=== PATIENT | female | born 1965 | race Caucasian/White ===

== ENCOUNTER 2017-10-23 07:00 | Outpatient (CLI) | payer OTHER ==
--- NOTE | 2017-10-23 12:11 | XRAY Report ---
THREE VIEW RIGHT KNEE: 10/23/2017 CLINICAL INDICATION: Pain. FINDINGS: AP, lateral, bilateral oblique views of the right knee demonstrate moderate osteoarthritis. There is no evidence of acute fracture. No effusion is seen. IMPRESSION: MODERATE RIGHT KNEE OSTEOARTHRITIS. TD: 10/23/2017 12:11
== END 2017-10-23 07:01 | disposition home or self-care (01) ==
LOC: DI 07:00
PROVIDERS: ATTEND Registered Nurse
DX: M17.11 Unilateral primary osteoarthritis, right knee (principal)

== ENCOUNTER 2017-11-16 07:56 | Outpatient (CLI) | payer OTHER ==
--- NOTE | 2017-11-16 11:13 | MRI Report ---
EXAM: RIGHT KNEE MRI WITHOUT CONTRAST. EXAM DATE: 11/16/2017 08:47 AM. CLINICAL HISTORY: On and off flares of pain, feeling of popping. COMPARISON: Radiographs 10/23/2017. TECHNIQUE: Multiplanar, multisequence T1-weighted and fluid-sensitive sequences of the knee without c ontrast. Other: None. FINDINGS: Cruciate ligaments: The anterior and posterior cruciate ligaments appear intact. Medial meniscus: Intact. No tear is identified. Lateral meniscus: Ill-defined horizontal tear and degeneration of the body. Small horizontal tear of the posterior horn extending mainly to the tibial articular surface. Deficiency, abnormal signal and morphology involving the anterior horn consistent with complex tear and degeneration. Collateral ligaments: The medial and fibular collateral ligaments appear intact. Bones and articular surfaces: Severe cartilage loss in the weight-bearing lateral compartment with pa tchy subchondral edema. Moderate cartilage thinning, fissuring and irregularity in the patellofemoral compartment. Mild cartilage thinning and superficial fissuring in the medial compartment. Small join t effusion. Extensor mechanism: The patellar tendon and quadriceps insertion appear intact. IMPRESSION: 1. Complex tears and degeneration of the lateral meniscus. 2. Tricompartmental osteoarthritis most pronounced in the lateral compartment. [facility] Referring Provider Line: [phone] SITE ID: [id number]
== END 2017-11-16 07:57 | disposition home or self-care (01) ==
LOC: DI 07:56
PROVIDERS: ATTEND Registered Nurse
DX: S83.271A Complex tear of lateral meniscus, current injury, right knee, initial encounter (principal); M17.11 Unilateral primary osteoarthritis, right knee

== ENCOUNTER 2017-11-18 22:35 | Emergency (ER) | payer OTHER ==
[2017-11-18 23:20] LABS: BASOPHILS % (AUTO) 0.6 %; EOSINOPHILS # (AUTO) 0.1 10^3/uL (0.0-0.7); EOSINOPHILS % (AUTO) 2.4 %; HGB - HEMOGLOBIN 13.2 g/dL (12.0-16.0); LYMPHOCYTES # (AUTO) 1.9 10^3/uL (1.5-3.5); LYMPHOCYTES % (AUTO) 39.1 %; MEAN CORPUSCULAR HEMOGLOBIN 31.2 pg (27.0-31.0); MEAN CORPUSCULAR HGB CONC 33.7 g/dL (32.0-36.0); MEAN CORPUSCULAR VOLUME 92.6 fL (81.0-99.0); MEAN PLATELET VOLUME 8.2 fL (7.9-10.8); MONOCYTES # (AUTO) 0.3 10^3/uL (0.0-1.0); MONOCYTES % (AUTO) 6.8 %; NEUTROPHILS # (AUTO) 2.5 10^3/uL (1.5-6.6); NEUTROPHILS % (AUTO) 51.1 %; PLT - PLATELET COUNT 156 10^3/uL (130-450); RED BLOOD COUNT 4.25 10^6/uL (4.20-5.40); WHITE BLOOD COUNT 4.9 x10^3/uL (4.8-10.8)
[2017-11-18 23:32] LABS: ALBUMIN 4.2 g/dL (3.2-5.5); ALBUMIN/GLOBULIN RATIO 1.5 (1.0-2.2); BILIRUBIN,TOTAL 0.7 mg/dL (0.2-1.0); CALCIUM 9.4 mg/dL (8.5-10.3)
[2017-11-19] MEDS ORDERED: ALBUTEROL NEB 2.5 MG/3 ML INH STA (00:38)
--- NOTE | 2017-11-19 00:39 | XRAY Preliminary Report ---
Exam: XR CHEST 2 VIEW X-RAY IMPRESSION: Normal 2-view chest radiography. [facility] SITE ID: [id number]
--- NOTE | 2017-11-19 00:39 | XRAY Report ---
EXAM: CHEST RADIOGRAPHY EXAM DATE: 11/19/2017 12:05 AM. CLINICAL HISTORY: Short of breath. COMPARISON: None. TECHNIQUE: 2 views. FINDINGS: Lungs/Pleura: No focal opacities evident. No pleural effusion. No pneumothorax. Normal volumes. Mediastinum: Heart and mediastinal contours are unremarkable. Other: None. IMPRESSION: Normal 2-view chest radiography. [facility] Referring Provider Line: [phone] SITE ID: [id number]
[2017-11-19] MEDS ORDERED: methylPREDNISolone SUCCINATE 125 MG/2 ML VIAL IVP STA (01:17)
--- NOTE | 2017-11-19 01:18 | ED Physician Documentation ---
PD HPI DYSPNEA - Stated complaint Stated Complaint: SOA - Chief complaint Chief Complaint: General - History obtained from History obtained from: Patient - History of Present Illness Timing - onset: How many days ago (2) Timing - onset during: Light activity, Other (talking) Timing - details: Intermittant Inciting event(s): No: URI Improved by: O2 Associated symptoms: No: Fever, Cough, Wheezing, Chest pain / discomfort, Palpitations, Diaphoresis Similar symptoms before: No diagnosis Recently seen: Not recently seen - Additional information Additional information: Patient is a 52 year old obese female who is presenting to the emergency department for shortness of breath. Patient states that it gets worse when she walks and when she talks. patient states that she has one episode of asthma/ reactive airway to smoke exposure in the past that made her go to the hospital. patient states that her weight has always fluctuated but that she has gained likely 30 plus pounds over the last 6 months. 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 - Present Medications Home Medications: Ambulatory Orders Medication Instructions Recorded Confirmed Acyclovir 400 mg PO DAILY 06/28/16 06/28/16 HYDROcod/ACETAM 5/325 [[place] 5/325] 1 tab PO DAILY PRN 06/28/16 06/28/16 Levothyroxine [Synthroid] 112 mcg PO QDAC 06/28/16 06/28/16 Meloxicam 15 mg PO DAILY 06/28/16 06/28/16 Ondansetron Odt [Zofran] 4 mg TL Q6H PRN #14 tablet 06/28/16 Promethazine [Phenergan] 25 - 50 mg PO Q6H PRN #14 tab 06/28/16 raNITIdine [Zantac] 150 mg PO DAILY 06/28/16 06/28/16 Hydrocodone/Acetaminophen 1 - 2 each PO Q6HR PRN #14 tablet 05/07/17 [Hydrocodon-Acetaminophen 5-325] Ondansetron Odt [Zofran] 4 mg TL Q6H PRN #10 tablet 05/07/17 Albuterol Sulfate [Proventil Hfa 1 - 2 puffs INH Q4H PRN #1 inhaler 11/19/17 Inhaler] predniSONE [Prednisone] 40 mg PO DAILY 5 Days tablet 11/19/17 - Allergies Allergies/Adverse Reactions: Allergies Allergy/AdvReac Type Severity Reaction Status Date / Time Penicillins Allergy Hives Verified 06/28/16 00:54 codeine AdvReac Emesis Verified 06/28/16 00:54 doxycycline AdvReac Emesis Verified 06/28/16 00:54 trazodone AdvReac Emesis Verified 06/28/16 00:54 - Social History Does the pt smoke?: No Smoking Status: Never smoker Does the pt drink ETOH?: Yes Does the pt have substance abuse?: No - Immunizations Immunizations are current?: Yes - POLST Patient has POLST: No PD ED PE NORMAL - Vitals Vital signs reviewed: Yes - General General: Alert and oriented X 3, No acute distress, Other - HEENT HEENT: Atraumatic - Neck Neck: No JVD - Cardiac Cardiac: RRR, No murmur - Respiratory Respiratory: No respiratory distress, Clear bilaterally - Derm Derm: Normal color, No rash - Extremities Extremities: No deformity - Neuro Neuro: Alert and oriented X 3 Eye Opening: To Voice Verbal: Oriented Results - Vitals Vitals: Vital Signs - 24 hr 11/18/17 11/18/17 11/19/17 22:40 23:47 00:55 Temperature 36.1 C L Heart Rate 96 84 86 Respiratory 17 17 8 L Rate Blood Pressure 153/105 H 145/83 H O2 Saturation 100 99 11/19/17 11/19/17 00:56 01:29 Temperature Heart Rate 86 95 Respiratory 17 19 Rate Blood Pressure 138/79 H 123/67 O2 Saturation 100 95 Oxygen O2 Source Room air - EKG (time done) 2251 Rate: Rate (enter#) (90) Rhythm: NSR [place]: LAD QRS: LVH Ischemia: Normal ST segments Compare to prior EKG: Old EKG unavailable - Labs Labs: Laboratory Tests 11/18/17 11/18/17 11/18/17 23:10 23:10 23:10 WBC 4.9 RBC 4.25 Hgb 13.2 Hct 39.3 MCV 92.6 MCH 31.2 H MCHC 33.7 RDW 13.0 Plt Count 156 MPV 8.2 Neut # 2.5 Lymph # 1.9 [place] # 0.3 Eos # 0.1 Baso # 0.0 Absolute Nucleated RBC 0.00 Nucleated RBC % 0.0 D-Dimer 205.1 Sodium 136 Potassium 3.7 Chloride 102 Carbon Dioxide 25 Anion Gap 9.0 BUN 23 H Creatinine 1.0 Estimated GFR (MDRD) 58 L Glucose 93 Calcium 9.4 Total Bilirubin 0.7 AST 24 ALT 31 Alkaline Phosphatase 59 Troponin I B-Natriuretic Peptide Total Protein 7.0 Albumin 4.2 Globulin 2.8 Albumin/Globulin Ratio 1.5 Lipase 21 L 11/18/17 11/18/17 23:10 23:10 WBC RBC Hgb Hct MCV MCH MCHC RDW Plt Count MPV Neut # Lymph # [place] # Eos # Baso # Absolute Nucleated RBC Nucleated RBC % D-Dimer Sodium Potassium Chloride Carbon Dioxide Anion Gap BUN Creatinine Estimated GFR (MDRD) Glucose Calcium Total Bilirubin AST ALT Alkaline Phosphatase Troponin I < 0.04 B-Natriuretic Peptide 17 Total Protein Albumin Globulin Albumin/Globulin Ratio Lipase - Rads (name of study) chest x-ray Radiology: Final report received (normal) PD MEDICAL DECISION MAKING - ED course Complexity details: reviewed old records, reviewed results, re-evaluated patient , considered differential, d/w patient ED course: Patient was seen and examined at bedside. ekg was performed and showed normal sinus. labs were drawn, including d-dimer and they were negative. chest -xray was ordered as well as albuterol. patient's chest x-ray showed no abnormalities and the breathing treatment improved the patient. Patient was started on a short course of steroids and prescription for inhaler was written. patient required no further work up and was stable for discharge with outpatient follow up. Departure - Departure Disposition: 01 Home, Self Care Clinical Impression: Reactive airway disease with acute exacerbation Condition: Good Instructions: ED Reactive Airway Disease Follow-Up: Bre [facility] OFFICE COPY SELECTOR [Primary Care Provider] - Tomorrow Prescriptions: Albuterol Sulfate [Proventil Hfa Inhaler] 1 - 2 puffs INH Q4H PRN #1 inhaler PRN Reason: Shortness Of Air/Wheezing predniSONE [Prednisone] 40 mg PO DAILY 5 Days tablet Comments: Your diagnostics today were within normal limits. there were no acute findings on your x-ray or blood work. You symptoms are likely multifactorial. You will be started on a short course of steroids and well as an inhaler. If your symptoms don't improve you should follow up with your doctor this week. You may return to the emergency department at any time for new, worsening or uncontrollable symptoms. Discharge Date/Time: 11/19/17 01:31
[2017-11-19 01:30] VITALS: BP 123/67
== END 2017-11-19 01:31 | disposition home or self-care (01) ==
LOC: ED 22:35
DX: J45.901 Unspecified asthma with (acute) exacerbation (principal); E03.9 Hypothyroidism, unspecified
CPT/HCPCS: 36415; 71046; 80053; 83690; 83880; 84484; 85025; 85379; 93005; 94640; 96374; 99284

== ENCOUNTER 2017-11-28 09:56 | Outpatient (CLI) | payer OTHER | END 2017-11-28 09:57 | disposition short-term general hospital (02) | LOC: EMS 09:56 | PROVIDERS: ATTEND Surgery | DX: R07.89 Other chest pain (principal); R00.2 Palpitations; R06.02 Shortness of breath; R11.0 Nausea | CPT/HCPCS: A0170; A0425; A0427 ==

== ENCOUNTER 2017-12-05 11:20 | Outpatient (CLI) | payer OTHER | END 2017-12-05 11:21 | disposition home or self-care (01) | LOC: DI 11:20 | PROVIDERS: ATTEND Registered Nurse | DX: I48.91 Unspecified atrial fibrillation (principal); I51.7 Cardiomegaly | CPT/HCPCS: 93306 ==

== ENCOUNTER 2018-01-19 11:15 | Outpatient (CLI) | payer OTHER | END 2018-01-19 11:16 | disposition home or self-care (01) | LOC: SC 11:15 | PROVIDERS: ATTEND Internal Medicine Pulmonary Disease | DX: G47.10 Hypersomnia, unspecified (principal); R51 Headache; R06.83 Snoring; G47.8 Other sleep disorders; E66.01 Morbid (severe) obesity due to excess calories; Z68.42 Body mass index [BMI] 45.0-49.9, adult | CPT/HCPCS: 99203; 99212 ==

== ENCOUNTER 2018-03-08 20:18 | Outpatient (CLI) | payer OTHER | END 2018-03-08 20:19 | disposition home or self-care (01) | LOC: SC 20:18 | PROVIDERS: ATTEND Internal Medicine Pulmonary Disease | DX: G47.33 Obstructive sleep apnea (adult) (pediatric) (principal); G47.61 Periodic limb movement disorder | CPT/HCPCS: 95810 ==

== ENCOUNTER 2018-04-06 09:15 | Outpatient (CLI) | payer OTHER | END 2018-04-06 09:16 | disposition home or self-care (01) | LOC: SC 09:15 | PROVIDERS: ATTEND Nurse Practitioner Family | DX: G47.33 Obstructive sleep apnea (adult) (pediatric) (principal); G25.81 Restless legs syndrome | CPT/HCPCS: 99212; 99215 ==

== ENCOUNTER 2018-04-23 08:22 | Outpatient (CLI) | payer OTHER ==
[2018-04-23 08:47] LABS: EOSINOPHILS # (AUTO) 0.2 10^3/uL (0.0-0.7); EOSINOPHILS % (AUTO) 4.3 %; HGB - HEMOGLOBIN 13.6 g/dL (12.0-16.0); LYMPHOCYTES # (AUTO) 1.4 10^3/uL (1.5-3.5); LYMPHOCYTES % (AUTO) 29.2 %; MEAN CORPUSCULAR HGB CONC 35.4 g/dL (32.0-36.0); MEAN PLATELET VOLUME 8.7 fL (7.9-10.8); MONOCYTES # (AUTO) 0.3 10^3/uL (0.0-1.0); NEUTROPHILS # (AUTO) 2.8 10^3/uL (1.5-6.6); NEUTROPHILS % (AUTO) 58.5 %; PLT - PLATELET COUNT 177 10^3/uL (130-450); RED BLOOD COUNT 4.13 10^6/uL (4.20-5.40); RED CELL DISTRIBUTION WIDTH 13.4 % (12.0-15.0); WHITE BLOOD COUNT 4.8 x10^3/uL (4.8-10.8)
[2018-04-23 09:15] LABS: % IRON SATURATION 18 % (20-50); ALBUMIN 4.2 g/dL (3.2-5.5); ALBUMIN/GLOBULIN RATIO 1.4 (1.0-2.2); ALKALINE PHOSPHATASE 85 IU/L (42-121); ALT ALANINE AMINOTRANSFERASE 30 IU/L (10-60); AST ASPARTATE AMINOTRANSFERASE 25 IU/L (10-42); BILIRUBIN,TOTAL 0.8 mg/dL (0.2-1.0); BUN - BLOOD UREA NITROGEN 23 mg/dL (6-20); CALCIUM 9.3 mg/dL (8.5-10.3); CARBON DIOXIDE - CO2 24 mmol/L (21-32); CHLORIDE 103 mmol/L (101-111); CREATININE 0.9 mg/dL (0.4-1.0); GFR - MDRD 65 (>89); GLUCOSE 112 mg/dL (70-100); IRON 62 ug/dL (28-170); MAGNESIUM 2.2 mg/dL (1.7-2.8); SODIUM 136 mmol/L (135-145); TOTAL IRON BINDING CAPACITY 342 ug/dL (250-450); TOTAL PROTEIN 7.1 g/dL (6.7-8.2); TRANSFERRIN 244 mg/dL (192-382)
[2018-04-23 09:17] LABS: CRP - C-REACTIVE PROTEIN < 1.0 mg/dL (0-1.0)
[2018-04-23 09:34] LABS: HEMOGLOBIN A1C 0.5 g/dL; HEMOGLOBIN A1C % 5.4 % (4.6-6.2)
[2018-04-23 09:45] LABS: T4 (THYROXINE) 9.22 ug/dL (6.09-12.23)
[2018-04-23 09:48] LABS: THYROID STIMULATING HORMONE 0.54 uIU/mL (0.34-5.60)
[2018-04-23 09:54] LABS: FERRITIN 27.6 ng/mL (11.0-306.8)
== END 2018-04-23 08:23 | disposition home or self-care (01) ==
LOC: LAB 08:22
PROVIDERS: ATTEND Registered Nurse
DX: N92.4 Excessive bleeding in the premenopausal period (principal); E03.9 Hypothyroidism, unspecified; G25.81 Restless legs syndrome
CPT/HCPCS: 36415; 80053; 82728; 83036; 83540; 83735; 84436; 84443; 84466; 85025; 85651; 86140

== ENCOUNTER 2018-04-23 08:36 | Outpatient (CLI) | payer OTHER ==
--- NOTE | 2018-05-10 10:36 | Mammography Report ---
Reason: SCREENING MAMMO Procedure Date: 04/23/2018 Accession Number: [id number] / [id number] Procedure: ROBERTO - Screening Mammo w/Richard CPT Code: FULL RESULT: EXAM: Screening Mammo w/Richard DATE: 04/23/2018 9:23 AM CLINICAL HISTORY: Routine screening. No reported personal or family history of breast cancer. TECHNIQUE: Bilateral CC and MLO views were obtained. COMPARISON: 07/19/2008 through 05/15/2003 FINDINGS: The breasts demonstrate diffuse fatty replacement bilaterally. There are no suspicious masses, calcifications or areas of distortion bilaterally. IMPRESSION: Negative examination RECOMMENDATION: Routine annual screening unless otherwise clinically indicated. BI-RADS CATEGORY 1: Negative STANDARD QUALIFYING STATEMENTS: 1. This examination was not reviewed with the aid of Computer-Aided Detection (CAD). 2. A negative or benign imaging report should not preclude biopsy if clinically suspicious findings are present. 3. Dense breasts may obscure an underlying neoplasm. 4. This examination was reviewed with the aid of 3D breast imaging (tomosynthesis).
== END 2018-04-23 08:37 | disposition home or self-care (01) ==
LOC: DI 08:36
PROVIDERS: ATTEND Nurse Practitioner Family
DX: Z12.31 Encounter for screening mammogram for malignant neoplasm of breast (principal)
CPT/HCPCS: 36415; 77063; 77067; 80053; 82728; 83036; 83540; 83735; 84436; 84443; 84466; 85025; 85651; 86140

== ENCOUNTER 2018-05-31 08:16 | Outpatient (CLI) | payer OTHER | END 2018-05-31 08:17 | disposition home or self-care (01) | LOC: SC 08:16 | PROVIDERS: ATTEND Nurse Practitioner Family | DX: G47.33 Obstructive sleep apnea (adult) (pediatric) (principal) | CPT/HCPCS: 99212; 99214 ==

== ENCOUNTER 2018-07-22 10:37 | Outpatient (CLI) | payer BC, OTHER | END 2018-07-22 10:38 | disposition home or self-care (01) | LOC: SC 10:37 | PROVIDERS: ATTEND Nurse Practitioner Family | DX: G47.33 Obstructive sleep apnea (adult) (pediatric) (principal); G47.26 Circadian rhythm sleep disorder, shift work type; G25.81 Restless legs syndrome | CPT/HCPCS: 99212; 99214 ==

== ENCOUNTER 2018-09-17 10:29 | Outpatient (CLI) | payer BC | END 2018-09-17 10:30 | disposition EMS.NT | LOC: EMS 10:29 | PROVIDERS: ATTEND Surgery | DX: R07.9 Chest pain, unspecified (principal); R61 Generalized hyperhidrosis; Z53.29 Procedure and treatment not carried out because of patient's decision for other reasons ==

== ENCOUNTER 2018-09-18 17:07 | Outpatient (CLI) | payer BC | END 2018-09-18 17:08 | disposition critical access hospital (66) | LOC: EMS 17:07 | PROVIDERS: ATTEND Surgery | DX: R00.0 Tachycardia, unspecified (principal); R42 Dizziness and giddiness | CPT/HCPCS: A0425; A0427 ==

== ENCOUNTER 2018-09-18 17:35 | Emergency (ER) | payer BC ==
[2018-09-18] MEDS ORDERED: diltiaZEM INJ 5 MG/ML VIAL IVP STA ×2 (17:49→18:29)
[2018-09-18] MEDS ORDERED: PROCAINAMIDE 1,000 MG in SODIUM CHLORIDE 0.9% 240 ML IV STA (17:49)
--- NOTE | 2018-09-18 17:51 | ED Physician Documentation ---
PD HPI CHEST PAIN - Stated complaint Stated Complaint: RAPID AFIB - Chief complaint Chief Complaint: Cardiac - History obtained from History obtained from: Patient - History of Present Illness Timing - onset: Today (53-year-old woman with history of paroxysmal atrial fibrillation on as needed Cardizem. She had a short episode yesterday of about 30 minutes and converted after oral Cardizem at home. Today it started again at 4:00 with uncomfortable palpitations and lightheadedness. 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 - Present Medications Home Medications: Ambulatory Orders Medication Instructions Recorded Confirmed Acyclovir 400 mg PO DAILY 06/28/16 06/28/16 HYDROcod/ACETAM 5/325 [[place] 5/325] 1 tab PO DAILY PRN 06/28/16 06/28/16 Levothyroxine [Synthroid] 112 mcg PO QDAC 06/28/16 06/28/16 Meloxicam 15 mg PO DAILY 06/28/16 06/28/16 Ondansetron Odt [Zofran] 4 mg TL Q6H PRN #14 tablet 06/28/16 Promethazine [Phenergan] 25 - 50 mg PO Q6H PRN #14 tab 06/28/16 raNITIdine [Zantac] 150 mg PO DAILY 06/28/16 06/28/16 Hydrocodone/Acetaminophen 1 - 2 each PO Q6HR PRN #14 tablet 05/07/17 [Hydrocodon-Acetaminophen 5-325] Ondansetron Odt [Zofran] 4 mg TL Q6H PRN #10 tablet 05/07/17 Albuterol Sulfate [Proventil Hfa 1 - 2 puffs INH Q4H PRN #1 inhaler 11/19/17 Inhaler] predniSONE [Prednisone] 40 mg PO DAILY 5 Days tablet 11/19/17 - Allergies Allergies/Adverse Reactions: Allergies Allergy/AdvReac Type Severity Reaction Status Date / Time Penicillins Allergy Hives Verified 03/23/19 17:48 codeine AdvReac Emesis Verified 09/18/18 17:48 doxycycline AdvReac Emesis Verified 09/18/18 17:48 trazodone AdvReac Emesis Verified 09/18/18 17:48 - Social History Does the pt smoke?: No Smoking Status: Never smoker Does the pt drink ETOH?: Yes Does the pt have substance abuse?: No - Family History Family history: reports: Non contributory - Immunizations Immunizations are current?: Yes - POLST Patient has POLST: No PD ED PE NORMAL - Vitals Vital signs reviewed: Yes - General General: Alert and oriented X 3, No acute distress - HEENT HEENT: PERRL, EOMI - Neck Neck: Supple, no meningeal sign, No bony TTP - Cardiac Cardiac: Other (Rapid and irregular) - Respiratory Respiratory: No respiratory distress, Clear bilaterally - Abdomen Abdomen: Normal bowel sounds, Soft, Non tender - Back Back: No CVA TTP, No spinal TTP - Derm Derm: Normal color, Warm and dry - Extremities Extremities: No edema, No calf tenderness / cord - Neuro Neuro: Alert and oriented X 3, Normal speech Results - Vitals Vitals: Vital Signs - 24 hr 09/18/18 09/18/18 09/18/18 17:43 18:00 18:10 Temperature 36.7 C Heart Rate 150 H 162 H 163 H Respiratory 20 18 18 Rate Blood Pressure 141/82 H 124/84 H 113/66 O2 Saturation 96 99 98 09/18/18 09/18/18 09/18/18 18:15 18:25 18:30 Temperature Heart Rate 158 H 149 H 153 H Respiratory 18 18 18 Rate Blood Pressure 121/86 H 116/90 H 125/86 H O2 Saturation 98 97 95 09/18/18 09/18/18 09/18/18 18:42 18:48 18:58 Temperature Heart Rate 148 H 147 H 118 H Respiratory 18 18 18 Rate Blood Pressure 102/68 105/74 117/105 H O2 Saturation 99 95 95 09/18/18 09/18/18 19:10 19:14 Temperature Heart Rate 77 76 Respiratory 20 18 Rate Blood Pressure 103/66 97/66 O2 Saturation 95 97 Oxygen O2 Source Room air - EKG (time done) 1749 Rate: Rate (enter#) (161) Rhythm: Atrial fibrillation QRS: LVH Ischemia: Non specific changes Computer interpretation: Agree with computer - Labs Labs: Laboratory Tests 09/18/18 09/18/18 09/18/18 18:05 18:05 18:05 WBC 4.3 L RBC 4.43 Hgb 14.0 Hct 41.6 MCV 93.9 MCH 31.7 H MCHC 33.7 RDW 13.7 Plt Count 173 MPV 8.8 Neut # (Auto) 2.5 Lymph # (Auto) 1.2 L [place] # (Auto) 0.4 Eos # (Auto) 0.2 Baso # (Auto) 0.0 Absolute Nucleated RBC 0.01 Nucleated RBC % 0.1 Sodium 141 Potassium 3.8 Chloride 107 Carbon Dioxide 25 Anion Gap 9.0 BUN 19 Creatinine 0.9 Estimated GFR (MDRD) 65 L Glucose 148 H Calcium 9.5 Total Bilirubin 0.6 AST 24 ALT 35 Alkaline Phosphatase 66 Troponin I < 0.04 Total Protein 7.1 Albumin 4.1 Globulin 3.0 Albumin/Globulin Ratio 1.4 Lipase 32 TSH 09/18/18 18:05 WBC RBC Hgb Hct MCV MCH MCHC RDW Plt Count MPV Neut # (Auto) Lymph # (Auto) [place] # (Auto) Eos # (Auto) Baso # (Auto) Absolute Nucleated RBC Nucleated RBC % Sodium Potassium Chloride Carbon Dioxide Anion Gap BUN Creatinine Estimated GFR (MDRD) Glucose Calcium Total Bilirubin AST ALT Alkaline Phosphatase Troponin I Total Protein Albumin Globulin Albumin/Globulin Ratio Lipase TSH 0.11 L PD MEDICAL DECISION MAKING - ED course ED course: 53-year-old woman with recurrent paroxysmal atrial fibrillation, she is rapid on arrival. 2 doses of diltiazem did not do much, this was followed with metoprolol and procainamide drip and she converted. Departure - Departure Disposition: 01 Home, Self Care Clinical Impression: Atrial fibrillation Qualifiers: Atrial fibrillation type: paroxysmal Qualified Code(s): I48.0 - Paroxysmal atrial fibrillation Condition: Good Instructions: Atrial Fibrillation Dc Comments: Continue your current meds But stop thyroid meds as your TSH was low, at 0.11 until you see your physician Return for recurrence Forms: Activity restrictions
[2018-09-18 18:17] LABS: BASOPHILS % (AUTO) 0.5 %; EOSINOPHILS # (AUTO) 0.2 10^3/uL (0.0-0.7); EOSINOPHILS % (AUTO) 5.2 %; LYMPHOCYTES # (AUTO) 1.2 10^3/uL (1.5-3.5); LYMPHOCYTES % (AUTO) 27.7 %; MEAN CORPUSCULAR HEMOGLOBIN 31.7 pg (27.0-31.0); MEAN CORPUSCULAR HGB CONC 33.7 g/dL (32.0-36.0); MEAN CORPUSCULAR VOLUME 93.9 fL (81.0-99.0); MEAN PLATELET VOLUME 8.8 fL (7.9-10.8); MONOCYTES # (AUTO) 0.4 10^3/uL (0.0-1.0); MONOCYTES % (AUTO) 8.2 %; NEUTROPHILS # (AUTO) 2.5 10^3/uL (1.5-6.6); NEUTROPHILS % (AUTO) 58.4 %; PLT - PLATELET COUNT 173 10^3/uL (130-450); RED BLOOD COUNT 4.43 10^6/uL (4.20-5.40); RED CELL DISTRIBUTION WIDTH 13.7 % (12.0-15.0); WHITE BLOOD COUNT 4.3 x10^3/uL (4.8-10.8)
[2018-09-18] MEDS ORDERED: METOCLOPRAMIDE 10 MG/2 ML VIAL IVP STA (18:29)
[2018-09-18 18:33] LABS: ALBUMIN 4.1 g/dL (3.2-5.5); ALBUMIN/GLOBULIN RATIO 1.4 (1.0-2.2); BILIRUBIN,TOTAL 0.6 mg/dL (0.2-1.0); CALCIUM 9.5 mg/dL (8.5-10.3); CREATININE 0.9 mg/dL (0.4-1.0); TOTAL PROTEIN 7.1 g/dL (6.7-8.2)
[2018-09-18] MEDS ORDERED: METOPROLOL 5 MG/5 ML VIAL IVP STA (18:47)
[2018-09-18 19:38] VITALS: BP 109/75
== END 2018-09-18 19:45 | disposition home or self-care (01) ==
LOC: ED 17:35
DX: I48.0 Paroxysmal atrial fibrillation (principal); E03.9 Hypothyroidism, unspecified
CPT/HCPCS: 36415; 80053; 83690; 84443; 84484; 85025; 93005; 96365; 96375; 99284; J2690; J2765

== ENCOUNTER 2018-09-27 18:34 | Outpatient (CLI) | payer BC | END 2018-09-27 18:35 | disposition critical access hospital (66) | LOC: EMS 18:34 | PROVIDERS: ATTEND Surgery | DX: R00.0 Tachycardia, unspecified (principal); R07.89 Other chest pain | CPT/HCPCS: A0425; A0427 ==

== ENCOUNTER 2018-09-27 19:00 | Inpatient (IN) | payer BC ==
--- NOTE | 2018-09-27 19:17 | ED Physician Documentation ---
History of Present Illness - Stated complaint Stated Complaint: AFIB/PALPITAIONS - History obtained from History obtained from: Patient - History of Present Illness Timing: Prior to arrival - Additonal information Additional information: Patient Is a 53-year-old female with history of hypothyroidism and paroxysmal atrial fibrillation presenting with a new onset episode of atrial fibrillation. Virtually, patient has had multiple episodes over the past 7-10 days. Prior to this past week or so, patient has not had any issues for over one year. Patient does not take preventative medications at home, but does have Cardizem 30 mg p.o. as needed. Patient describes multiple episodes over the past week or so where she has taken her home medications and converted, as well as other times where she has had to come to the hospital and receive additional medications including metoprolol and procainamide to help her convert. Patient's associated symptoms include palpitations, chest discomfort, shortness of breath particularly with exertion, as well as lightheadedness without syncope. When not experiencing an episode, patient has no complaints and is otherwise in her normal state of health. Patient does believe that her thyroid medication and possibly her antidepressant medication could be contributing, although she has been off these medications for the past several days.No particular worsening or improving factors noted except for exertion. 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 - Present Medications Home Medications: Ambulatory Orders Medication Instructions Recorded Confirmed Acyclovir 400 mg PO DAILY 06/28/16 06/28/16 HYDROcod/ACETAM 5/325 [[place] 5/325] 1 tab PO DAILY PRN 06/28/16 06/28/16 Levothyroxine [Synthroid] 112 mcg PO QDAC 06/28/16 06/28/16 Meloxicam 15 mg PO DAILY 06/28/16 06/28/16 Ondansetron Odt [Zofran] 4 mg TL Q6H PRN #14 tablet 06/28/16 Promethazine [Phenergan] 25 - 50 mg PO Q6H PRN #14 tab 06/28/16 raNITIdine [Zantac] 150 mg PO DAILY 06/28/16 06/28/16 Hydrocodone/Acetaminophen 1 - 2 each PO Q6HR PRN #14 tablet 05/07/17 [Hydrocodon-Acetaminophen 5-325] Ondansetron Odt [Zofran] 4 mg TL Q6H PRN #10 tablet 05/07/17 Albuterol Sulfate [Proventil Hfa 1 - 2 puffs INH Q4H PRN #1 inhaler 11/19/17 Inhaler] predniSONE [Prednisone] 40 mg PO DAILY 5 Days tablet 11/19/17 - Allergies Allergies/Adverse Reactions: Allergies Allergy/AdvReac Type Severity Reaction Status Date / Time Penicillins Allergy Hives Verified 09/18/18 17:48 codeine AdvReac Emesis Verified 09/18/18 17:48 doxycycline AdvReac Emesis Verified 09/18/18 17:48 trazodone AdvReac Emesis Verified 09/18/18 17:48 - Social History Does the pt smoke?: No Smoking Status: Never smoker Does the pt drink ETOH?: Yes Does the pt have substance abuse?: No - Immunizations Immunizations are current?: Yes - POLST Patient has POLST: No PD ED PE NORMAL - General General: Alert and oriented X 3, No acute distress, Well developed/nourished, Other (Comfortable in bed and speaking in full sentences) - HEENT HEENT: Atraumatic, Moist mucous membranes - Cardiac Cardiac: No murmur, Other (Irregular, tachycardic) - Respiratory Respiratory: No respiratory distress, Clear bilaterally - Abdomen Abdomen: Soft, Non tender, Non distended - Derm Derm: Normal color, Warm and dry, No rash - Extremities Extremities: No deformity, No edema - Neuro Neuro: Alert and oriented X 3, No motor deficit, No sensory deficit - Psych Psych: Normal mood, Normal affect Results - Vitals Vitals: Vital Signs - 24 hr 09/27/18 09/27/18 19:08 19:31 Temperature 36.7 C Heart Rate 121 H 107 H Respiratory 16 18 Rate Blood Pressure 150/98 H 150/98 H O2 Saturation 97 96 Oxygen O2 Source Room air - EKG (time done) 1910 Rate: Rate (enter#) (150) Rhythm: Atrial fibrillation - Labs Labs: Laboratory Tests 09/27/18 09/27/18 09/27/18 19:35 19:35 19:35 WBC 3.7 L RBC 4.25 Hgb 13.7 Hct 39.4 MCV 92.6 MCH 32.2 H MCHC 34.8 RDW 13.3 Plt Count 170 MPV 8.5 Neut # (Auto) 1.8 Lymph # (Auto) 1.4 L [place] # (Auto) 0.3 Eos # (Auto) 0.2 Baso # (Auto) 0.0 Absolute Nucleated RBC 0.00 Nucleated RBC % 0.1 Sodium 138 Potassium 3.7 Chloride 106 Carbon Dioxide 23 Anion Gap 9.0 BUN 18 Creatinine 0.8 Estimated GFR (MDRD) 75 L Glucose 127 H Calcium 9.9 Total Bilirubin 0.7 AST 24 ALT 25 Alkaline Phosphatase 65 Troponin I < 0.04 Total Protein 6.9 Albumin 3.8 Globulin 3.1 Albumin/Globulin Ratio 1.2 Lipase 32 TSH 09/27/18 19:35 WBC RBC Hgb Hct MCV MCH MCHC RDW Plt Count MPV Neut # (Auto) Lymph # (Auto) [place] # (Auto) Eos # (Auto) Baso # (Auto) Absolute Nucleated RBC Nucleated RBC % Sodium Potassium Chloride Carbon Dioxide Anion Gap BUN Creatinine Estimated GFR (MDRD) Glucose Calcium Total Bilirubin AST ALT Alkaline Phosphatase Troponin I Total Protein Albumin Globulin Albumin/Globulin Ratio Lipase TSH 1.00 PD MEDICAL DECISION MAKING - ED course Complexity details: reviewed old records, reviewed results, re-evaluated patient, considered differential, d/w patient, d/w family, d/w banking consultant ED course: Unfortunately, patient appears to be experiencing refractory atrial fibrillation with RVR despite multiple medications and has had several episodes both at home and at the hospital in the past 7-10 days. Patient received diltiazem 25 mg, as well as amiodarone 150 mg in route by EMS. Given these dosings, feel most appropriate to try Lopressor 10 mg to help control rate. Of note, patient's rate does oscillate between the high 90s and 140/150. At this time, patient is rather asymptomatic except for SOB with exertion. Remainder of physical exam is relatively unremarkable. At this time, have low suspicion for ACS, myocardial infarction, unstable angina or other acute pathology except for arrhythmia.EKG indicated atrial fibrillation with RVR. Troponin negative. Remainder screening lab work including thyroid studies, also relatively unremarkable. Do not feel patient requires urinalysis testing or imaging at this time. As patient's heart rate continued to oscillate, although lower than when she first arrived, felt appropriate to start diltiazem ip and discuss admission for further workup and treatment. As she was relatively asymptomatic and not anticoagulated with multiple episodes over the past several days, did not feel patient was appropriate for emergent electrical cardioversion and discussed this with her. Spoke with hospitalist, who agreed with admission and requested CTA chest to further evaluate for PE, which was ordered. Patient amenable to hospitalization for further treatment and workup. Departure - Departure Disposition: [facility] DC/Xfer Clinical Impression: Atrial fibrillation Qualifiers: Atrial fibrillation type: paroxysmal Qualified Code(s): I48.0 - Paroxysmal atrial fibrillation
[2018-09-27] MEDS ORDERED: SODIUM CHLORIDE 0.9% 1,000 ML IV ONE (19:27)
[2018-09-27] MEDS ORDERED: METOPROLOL 5 MG/5 ML VIAL IVP STA (19:33)
[2018-09-27 19:51] LABS: BASOPHILS % (AUTO) 1.3 %; EOSINOPHILS # (AUTO) 0.2 10^3/uL (0.0-0.7); EOSINOPHILS % (AUTO) 4.2 %; HGB - HEMOGLOBIN 13.7 g/dL (12.0-16.0); LYMPHOCYTES # (AUTO) 1.4 10^3/uL (1.5-3.5); LYMPHOCYTES % (AUTO) 37.4 %; MEAN CORPUSCULAR HEMOGLOBIN 32.2 pg (27.0-31.0); MEAN CORPUSCULAR HGB CONC 34.8 g/dL (32.0-36.0); MEAN CORPUSCULAR VOLUME 92.6 fL (81.0-99.0); MEAN PLATELET VOLUME 8.5 fL (7.9-10.8); MONOCYTES # (AUTO) 0.3 10^3/uL (0.0-1.0); MONOCYTES % (AUTO) 7.9 %; NEUTROPHILS # (AUTO) 1.8 10^3/uL (1.5-6.6); NEUTROPHILS % (AUTO) 49.2 %; PLT - PLATELET COUNT 170 10^3/uL (130-450); RED BLOOD COUNT 4.25 10^6/uL (4.20-5.40); RED CELL DISTRIBUTION WIDTH 13.3 % (12.0-15.0); WHITE BLOOD COUNT 3.7 x10^3/uL (4.8-10.8)
[2018-09-27] MEDS ORDERED: diltiaZEM INJ 125 MG in DEXTROSE 5% 100 ML IV STA (20:02)
[2018-09-27 20:03] LABS: ALBUMIN 3.8 g/dL (3.2-5.5); ALBUMIN/GLOBULIN RATIO 1.2 (1.0-2.2); BILIRUBIN,TOTAL 0.7 mg/dL (0.2-1.0); CALCIUM 9.9 mg/dL (8.5-10.3); CREATININE 0.8 mg/dL (0.4-1.0); TOTAL PROTEIN 6.9 g/dL (6.7-8.2)
[2018-09-27] MEDS ORDERED: diltiaZEM INJ 5 MG/ML VIAL ONE (20:11)
[2018-09-27] MEDS ORDERED: SODIUM CHLORIDE FLUSH 0.9% 10 ML SYRINGE IVP PRN (21:57)
[2018-09-27 22:22] LABS: MAGNESIUM 2.2 mg/dL (1.7-2.8); PHOSPHORUS 2.2 mg/dL (2.5-4.6)
[2018-09-27] MEDS ORDERED: IOPAMIDOL-300 100 ML VIAL ONE (22:58)
[2018-09-27] MEDS ORDERED: IOPAMIDOL-300 100 ML VIAL IVP ONE (23:17)
[2018-09-27] MEDS: SODIUM CHLORIDE 0.9% 1,000 ML IV SCH (23:26)
[2018-09-27] MEDS ORDERED: diltiaZEM INJ 125 MG in DEXTROSE 5% 100 ML IV SCH (23:45)
[2018-09-27] MEDS ORDERED: LORazepam 0.5 MG TABLET PO PRN (23:47)
[2018-09-28] MEDS: NEUTRA-PHOS 250 MG TABLET PO SCH ×2 (00:12→02:53)
[2018-09-28] MEDS: diltiaZEM 30 MG TABLET PO SCH ×2 (00:13→05:56)
[2018-09-28] MEDS: SODIUM CHLORIDE FLUSH 0.9% 10 ML SYRINGE IVP SCH ×3 (00:15→18:11)
--- NOTE | 2018-09-28 00:39 | CT Report ---
Reason: concern for PE Procedure Date: 09/27/2018 Accession Number: [id number] / [id number] Procedure: CT - ANGIO CHEST W/WO CPT Code: FULL RESULT: EXAM: CT ANGIOGRAM CHEST EXAM DATE: 09/27/2018 11:18 PM. CLINICAL HISTORY: Shortness of breath and palpitations. Atrial fibrillation. Concern for PE. COMPARISON: None. TECHNIQUE: Routine helical imaging was performed through the chest in the pulmonary arterial phase. IV Contrast: ISOVUE 300 80mL. Reconstructions: Coronal 3-D MIP reconstructions.Sagittal and coronal. In accordance with CT protocol optimization, one or more of the following dose reduction techniques were utilized for this exam: automated exposure control, adjustment of mA and/or KV based on patient size, or use of iterative reconstructive technique. FINDINGS: Pulmonary Arteries: Diagnostic quality: Suboptimal through the segmental arteries. Images are degraded due to body habitus. No obvious pulmonary emboli. No evidence of right heart strain. Lungs/Pleura: Bibasilar atelectasis. No alveolar consolidation or pleural effusion seen. No pneumothorax. Mediastinum: Heart size is normal to upper normal. No lymphadenopathy seen. Thoracic Aorta: Ascending aorta measures 3.8 cm. No aortic dissection. No abdominal aortic aneurysm. Upper Abdomen: Possible fatty liver. Prior cholecystectomy. Other: None. IMPRESSION: 1. Images are degraded due to body habitus. No obvious pulmonary emboli. 2. Bibasilar atelectasis. 3. Possible fatty liver. RADIA
--- NOTE | 2018-09-28 02:28 | HISTORY & PHYSICAL EXAMINATION ---
Chief Complaint - Chief Complaint Chief Complaint: palpitation History of Present Illness - Admitted From Admitted From:: [facility] ED - History Obtained From Records Reviewed: yes History obtained from: patient - History of Present Illness HPI Comment/Other: Patient is a 53 y/o female who presented to the ED via EMS with complain of palpitations. She described it as pounding in her chest which felt like a closed fist in her throat. She checked her heart rate in an jane she has and it read as high as the 200's. Subsequent check read 160's. This happened around 5pm on 09/27/18 after she had just woken up from sleep. She has had intermittent palpitations for the past 7 days which are consistent with atrial fibrillation. She has history of hypothyroidism and recently had her TSH checked. It came back at 0.15. As a result her synthroid dose is being adjusted by her PCP. She has history of paroxysmal atrial fibrillation with last occurrence being about 9 months ago. She takes cardizem intermittently and took a 30mg pill about 1:30 pm on 09/27/18 She reports feeling light-headed, dyspneic and having a chest discomfort. She denies fever or chills, abdominal pain, nausea or vomiting. She reported some leg cramps for which she took methocarbamol EMS was called by her spouse. She was given diltiazem 25mg IV X1 and amiodarone 150mg IV X1. In the ED she received lopressor 5mg IV X [address] a diltiazem drip. At the time of presentation, it was at a rate of 15mg/hr and her pulse fluctuated between 70's and 130's History - Past Medical History Cardiovascular: reports: Atrial fibrillation Respiratory: reports: Asthma Neuro: reports: None Endocrine/Autoimmune: reports: HyPOthyroidism GI: reports: GERD : reports: None Psych: reports: None, Depression Musculoskeletal: reports: None Derm: reports: None MRSA Hx?: No - Past Surgical History General: reports: Cholecystectomy /[employer]IST: reports: section - POLST Patient has POLST: No Meds/Allgy - Home Medications Home Medications: Ambulatory Orders Medication Instructions Recorded Confirmed Acyclovir 400 mg PO DAILY 06/28/16 06/28/16 HYDROcod/ACETAM 5/325 [[place] 5/325] 1 tab PO DAILY PRN 06/28/16 06/28/16 Levothyroxine [Synthroid] 112 mcg PO QDAC 06/28/16 06/28/16 Meloxicam 15 mg PO DAILY 06/28/16 06/28/16 Ondansetron Odt [Zofran] 4 mg TL Q6H PRN #14 tablet 06/28/16 Promethazine [Phenergan] 25 - 50 mg PO Q6H PRN #14 tab 06/28/16 raNITIdine [Zantac] 150 mg PO DAILY 06/28/16 06/28/16 Hydrocodone/Acetaminophen 1 - 2 each PO Q6HR PRN #14 tablet 05/07/17 [Hydrocodon-Acetaminophen 5-325] Ondansetron Odt [Zofran] 4 mg TL Q6H PRN #10 tablet 05/07/17 Albuterol Sulfate [Proventil Hfa 1 - 2 puffs INH Q4H PRN #1 inhaler 11/19/17 Inhaler] predniSONE [Prednisone] 40 mg PO DAILY 5 Days tablet 11/19/17 - Allergies Allergies/Adverse Reactions: Allergies Allergy/AdvReac Type Severity Reaction Status Date / Time Penicillins Allergy Hives Verified 09/18/18 17:48 codeine AdvReac Emesis Verified 09/18/18 17:48 doxycycline AdvReac Emesis Verified 09/18/18 17:48 trazodone AdvReac Emesis Verified 09/18/18 17:48 Review of Systems - Constitutional Constitutional: denies: Fatigue, Fever, Chills, Malaise, Weakness, Poor appetite, Diaphoresis - Eyes Eyes: denies: Blurred vision, Vision loss, Dipolpia - Ears, Nose & Throat Ears, Nose & Throat: denies: Vertigo, Sore throat, Hoarseness - Cardiovascular Cariovascular: reports: Irregular heart rate, Palpitations, Chest pain, Lightheadedness, Exertional dyspnea. denies: Edema - Respiratory Respiratory: reports: SOB at rest, SOB with exertion. denies: Cough, Sputum production, Wheezing - Gastrointestinal Gastrointestinal: reports: Reflux/heartburn. denies: Abdominal pain, Abdominal distention, Constipation, Diarrhea, Nausea, Vomiting, Coffee grounds emesis - Genitourinary Genitourinary: denies: Dysuria, Frequency, Urgency, Hematuria - Musculoskeletal Musculoskeletal: reports: Other (muscle cramp in right calf) - Integumentary Integumentary: denies: Rash, Pruritis, Lesions, Dryness - Neurological Neurological: denies: General weakness, Focal weakness, Headache, Dizziness - Psychiatric Psychiatric: reports: Depression - Endocrine Endocrine: denies: Polyuria, Polydypsia - Hematologic/Lymphatic Hematologic/Lymphatic: denies: Anemia Prior Level of Functionality: Independent of activities of daily living Lives with her spouse 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 negative: No scleral icterus ENT: positive: ENT inspection nml, No signs of dehydration Neck: positive: Nml inspection, No JVD, Trachea midline Respiratory: positive: Chest non-tender, No respiratory distress, Breath sounds nml. negative: Wheezes, Rales, Rhonchi Cardiovascular: positive: No murmur, Irregularly irregular Abdomen: positive: Non-tender, Nml bowel sounds, No distention. negative: Guarding, Rebound Back: positive: Nml inspection Skin: positive: Color nml, No rash, Warm, Dry Extremities: positive: Non-tender, Full ROM, Nml appearance, No pedal edema Neurologic/Psychiatric: positive: Oriented x3. negative: Facial droop, Slurred/abnml speech, Depressed mood/affect Conclusion/Plan - Problem List (1) Atrial fibrillation with RVR Conclusion/Plan: Etiology undetermined Endocrine: Unlikely as TSH is 1.0 Hematologic: Patient is not anemic ?Infections: While WBC is 3.7, there is no suspected site of an infection and patient is Afebrile Patient rarely drinks and there are no metabolic derangements Pulmonary: Ct Angio of thorax was negative for PE Pt uses a CPAP at home ?Cardiac: Troponin neg X 3. BNP 55. Lasecho was 12/05/2017 EF was 60-65 %. There was mild concentric LVH and mild to moderately dilated RV Will order stress test Patient converted to sinus rhythm on cardidem gtt Cardizem 30mg po q6hr ordered. Cardizem gtt weaned off Will convert to cardizem CD upon discharge Patient CHADS Score is 0. Patient takes a baby aspirin daily She has an appointment with her curer foam rubber on 10/14/18 Advised to contact curer foam [employer] office and move appointment sooner ?Ablation (2) GERD (gastroesophageal reflux disease) Conclusion/Plan: Protonix (3) Depression Conclusion/Plan: On Zoloft (4) Hypothyroidism Conclusion/Plan: On synthroid. Dose currently being adjust by PCP. TSH 1.0 (5) Asthma Conclusion/Plan: Not in exacerbation Will monitor. Will hold prednisone and albuterol for now - Lab Results Fish Bones: 09/28/18 06:03 09/28/18 06:03 Core Measures - Anticipated LOS I expect patient to be DC'd or transferred within 96 hours.: Yes - DVT/VTE - Prophylaxis VTE/DVT Device ordered at admit?: Yes
[2018-09-28] MEDS: ACETAMINOPHEN 325 MG TABLET PO PRN ×2 (05:53→15:14)
[2018-09-28 06:16] LABS: BASOPHILS # (AUTO) 0.1 10^3/uL (0.0-0.1); EOSINOPHILS # (AUTO) 0.2 10^3/uL (0.0-0.7); EOSINOPHILS % (AUTO) 3.6 %; HGB - HEMOGLOBIN 12.8 g/dL (12.0-16.0); LYMPHOCYTES # (AUTO) 1.9 10^3/uL (1.5-3.5); LYMPHOCYTES % (AUTO) 39.1 %; MEAN CORPUSCULAR HEMOGLOBIN 32.4 pg (27.0-31.0); MEAN CORPUSCULAR HGB CONC 34.9 g/dL (32.0-36.0); MEAN CORPUSCULAR VOLUME 92.9 fL (81.0-99.0); MEAN PLATELET VOLUME 8.4 fL (7.9-10.8); MONOCYTES # (AUTO) 0.4 10^3/uL (0.0-1.0); NEUTROPHILS # (AUTO) 2.4 10^3/uL (1.5-6.6); NEUTROPHILS % (AUTO) 48.3 %; PLT - PLATELET COUNT 160 10^3/uL (130-450); RED BLOOD COUNT 3.95 10^6/uL (4.20-5.40); RED CELL DISTRIBUTION WIDTH 13.6 % (12.0-15.0); WHITE BLOOD COUNT 4.9 x10^3/uL (4.8-10.8)
[2018-09-28 06:24] LABS: CALCIUM 8.8 mg/dL (8.5-10.3); CREATININE 0.7 mg/dL (0.4-1.0)
[2018-09-28 06:34] LABS: MAGNESIUM 2.2 mg/dL (1.7-2.8); PHOSPHORUS 5.2 mg/dL (2.5-4.6)
[2018-09-28] MEDS ORDERED: diltiaZEM 30 MG TABLET PO SCH ×2 (08:00→12:00)
[2018-09-28] MEDS ORDERED: LEVOTHYROXINE 112 MCG TABLET PO SCH (08:00)
[2018-09-28] MEDS: SODIUM CHLORIDE 0.9% 1,000 ML IV SCH (09:00)
[2018-09-28] MEDS: ENOXAPARIN 40 MG/0.4 ML SYRINGE SUBQ SCH (09:08)
--- NOTE | 2018-09-28 12:13 | MISCELLANEOUS PROVIDER NOTE ---
Miscellaneous Provider Note - - Note: Subjective: Patient had intermittent bouts of palpitations after eating breakfast this morning however not like presenting signs or symptoms when she presented to the EMS on this admission with a pounding in her chest which felt like a closed fist in her throat. Patient currently is normal sinus rhythm and was taken off diltiazem drip converted to an SR with a sinus rhythm confirmed at 70 bpm on EKG with minimal ST depression. Patient is off Synthroid currently. Patient currently is chest pain-free, no fevers, no coughing, no maculopapular rashes GI/ symptoms joint tenderness or reports of syncopal events. Later during the day patient was complaining of atypical chest pain that was reproducible to the left anterior chest wall alongside with nausea with no jaw claudication. Patient had been held off on her home meds of Zoloft, meloxicam, Robaxin. Patient had an EKG which was unremarkable along troponin and was given aspirin 81 mg p.o. plus NTG prn. Objective: Vital signs are hemodynamically stable. Afebrile. Heart rate 67 bpm. Blood pressure 117/73. RR 22. Non-hypoxemic. General Appearance: positive: No acute distress, Alert, Cooperative and calm. Morbidly obese Eyes Bilateral: positive: Normal inspection, PERRL, EOMI, No lid inflammation, Conjunctivae nml. negative: No scleral icterus ENT: positive: ENT inspection nml, No signs of dehydration Neck: positive: Nml inspection, No JVD, Trachea midline Respiratory: positive: Chest non-tender, No respiratory distress, Breath sounds nml. negative: Wheezes, Rales, Rhonchi Cardiovascular: positive: No murmur, Normal sinus rhythm, no gallops no clicks. Chest wall reproducible chest pain over fourth intercostal sternal border with left anterior chest wall involvement upper sternal border alongside clavicle. Abdomen: positive: Non-tender, Nml bowel sounds, No distention. negative: Guarding, Rebound Back: positive: Nml inspection Skin: positive: Color nml, No rash, Warm, Dry Extremities: positive: Non-tender, Full ROM, Nml appearance, No pedal edema Neurologic/Psychiatric: positive: Oriented x3. negative: Facial droop, Slurred/abnml speech, Depressed mood/affect Imaging studies: Reviewed next Labs: Reviewed next Assessment/plan (1) Atrial fibrillation with RVR Conclusion/Plan: Etiology undetermined, Patient relays a prior history of SVT for which she Had been treated with procainamide in the ED as well as diltiazem. Patient pre sented with RVR A. danielle in the 200s-300s which essentially converted with diltiazem drip and currently off of it as of now. No evidence of PE on CTA. Patient's cardiac enzymes are unremarkable with a unremarkable BNP. Last stress echo was on 12/05/17 with EF of 60-65% with mild concentric LVH and mild to moderate dilated RV. EKG showed normal sinus rhythm at 70 bpm after she converted with minimal ST depression. Will cancel current stress testing. Will transition over to diltiazem 120 mg p.o. twice daily along with Flecainide 50 mg p.o. twice daily. Endocrinologically would query on possible underlying autoimmune thyroiditis however free T3-T4 are unremarkable with a TSH of 1.0, patient is not anemic, they are no infections present, patient does admit to drinking some green tea which she has stopped doing now that she has had more frequent palpitations. Patient does not drink coffee anymore. Patient uses a CPAP at home and will continue with this. Patient CHADS Score is 0. Currently not a candidate for anticoagulation. Patient takes a baby aspirin daily. She has an appointment with her service center coordinator on 10/14/18. Patient obtained a new appointment to see primary service center coordinator Dr. Andesron phone number [phone], However was given an appointment to see Dr. Bolton on 09/30/18 at 8:20 AM at [facility]. Patient likely needs a referral to chief risk officer For possible EP study and perhaps an Ablation procedure if indicated. (2) Atypical chest pain Secondary to muscle spasms. Patient is currently chest pain-free was given aspirin 81 mg p.o. x1 along with nitroglycerin as needed. Will restart patient's Zoloft alongside with muscle relaxant she was previously on Robaxin and will give Flexeril instead alongside Lidoderm patch and restarting of meloxicam as this is reproducible chest pain. 4 sets of troponin since admission are unremarkable alongside with her second EKG showing an LVH by voltage criteria sinus rhythm at 70 bpm. We will obtain lipid panel fasting in the morning. (2) GERD (gastroesophageal reflux disease) Conclusion/Plan: Patient was on omeprazole and will continue with Protonix. (3) Depression Conclusion/Plan: Continue with Zoloft (4) Hypothyroidism Conclusion/Plan: On synthroid. Was placed on hold will resume in the setting of whether this is precipitating arrhythmias or not. Underlying autoimmune process workup in progress sending off anti-thyroglobulin as well as anti-peroxidase antibodies, TSH was 1.0, free T3 and T4 were unremarkable. Dose currently being adjust by PCP. (5) Asthma Conclusion/Plan: Not in exacerbation Will monitor. Will hold prednisone and albuterol for now, Xopenex as needed due to patient's previous RVR A. fib (6) Morbidly obese with a BMI of 47.8 Diet and exercise and decreasing BMI would decrease morbidity which would be associated with patient's weight such as sleep apnea and other cardiovascular risks. Continue with DVT prophylaxis with Lovenox, GI prophylaxis with Protonix.
[2018-09-28] MEDS: diltiaZEM CD 120 MG CAPSULE PO SCH ×2 (12:53→21:04)
[2018-09-28] MEDS ORDERED: NITROGLYCERIN SL 0.4 MG TABLET SL PRN (15:06)
[2018-09-28] MEDS: ASPIRIN 325 MG TABLET PO SCH (15:18)
[2018-09-28] MEDS ORDERED: LIDOCAINE PATCH 5% TOP PRN (15:20)
[2018-09-28] MEDS ORDERED: CYCLOBENZAPRINE 10 MG TABLET PO PRN (15:20)
[2018-09-28] MEDS ORDERED: ASPIRIN 325 MG TABLET PO SCH (16:00)
[2018-09-28] MEDS ORDERED: ONDANSETRON ODT 4 MG TABLET TL PRN (16:08)
[2018-09-28] MEDS: PANTOPRAZOLE 40 MG TABLET PO SCH (16:39)
[2018-09-28] MEDS ORDERED: HYDROcod/ACETAM 5/325 MG TABLET PO PRN (18:08)
[2018-09-28] MEDS: MELOXICAM 7.5 MG TABLET PO SCH (18:10)
[2018-09-28] MEDS: ACYCLOVIR 200 MG CAPSULE PO SCH (21:03)
[2018-09-28] MEDS: FLECAINIDE 50 MG TABLET PO SCH (21:04)
[2018-09-29] MEDS: SODIUM CHLORIDE FLUSH 0.9% 10 ML SYRINGE IVP SCH ×2 (03:27→08:45)
[2018-09-29] MEDS: ACETAMINOPHEN 325 MG TABLET PO PRN (03:27)
[2018-09-29 06:48] LABS: BASOPHILS % (AUTO) 0.7 %; EOSINOPHILS # (AUTO) 0.2 10^3/uL (0.0-0.7); EOSINOPHILS % (AUTO) 4.7 %; HGB - HEMOGLOBIN 12.4 g/dL (12.0-16.0); LYMPHOCYTES # (AUTO) 2.1 10^3/uL (1.5-3.5); LYMPHOCYTES % (AUTO) 43.2 %; MEAN CORPUSCULAR HGB CONC 33.8 g/dL (32.0-36.0); MEAN CORPUSCULAR VOLUME 94.7 fL (81.0-99.0); MEAN PLATELET VOLUME 8.3 fL (7.9-10.8); MONOCYTES # (AUTO) 0.4 10^3/uL (0.0-1.0); MONOCYTES % (AUTO) 7.4 %; NEUTROPHILS # (AUTO) 2.1 10^3/uL (1.5-6.6); PLT - PLATELET COUNT 146 10^3/uL (130-450); RED BLOOD COUNT 3.86 10^6/uL (4.20-5.40); RED CELL DISTRIBUTION WIDTH 13.3 % (12.0-15.0); WHITE BLOOD COUNT 4.9 x10^3/uL (4.8-10.8)
[2018-09-29] MEDS: PANTOPRAZOLE 40 MG TABLET PO SCH (06:48)
[2018-09-29 06:57] LABS: CALCIUM 8.8 mg/dL (8.5-10.3); CREATININE 0.8 mg/dL (0.4-1.0)
[2018-09-29] MEDS ORDERED: LEVOTHYROXINE 112 MCG TABLET PO SCH (07:00)
[2018-09-29] MEDS: FLECAINIDE 50 MG TABLET PO SCH (08:25)
[2018-09-29] MEDS: ASPIRIN 325 MG TABLET PO SCH (08:25)
[2018-09-29] MEDS: ACYCLOVIR 200 MG CAPSULE PO SCH (08:26)
[2018-09-29] MEDS: MELOXICAM 7.5 MG TABLET PO SCH (08:26)
[2018-09-29] MEDS: ENOXAPARIN 40 MG/0.4 ML SYRINGE SUBQ SCH (08:27)
--- NOTE | 2018-09-29 08:32 | DISCHARGE SUMMARY ---
Discharge Summary Admit Date: 09/27/18 Discharge Date: 09/29/18 Discharging Provider: Dr. Leon Primary Care Provider: Tanika Díaz Code Status: Attempt Resuscitation Condition at Discharge: Good Discharge Disposition: 01 Home, Self Care - DIAGNOSES Admission Diagnoses: (1) Atrial fibrillation with RVR (2) History of SVT in the past, Status post pharmacological cardioversion (3) GERD (gastroesophageal reflux disease) (4) Depression (5) Hypothyroidism (6) Asthma Discharge Diagnoses with Status of Each Condition: (1) Atrial fibrillation with RVR Status post pharmacological cardioversion, Currently normal sinus rhythm. Resolved (2) Atypical chest pain Secondary to muscle spasms. Resolved (3) GERD (gastroesophageal reflux disease), Stable (4) Depression, Stable (5) Hypothyroidism, Stable (6) Asthma, Stable (7) Morbidly obese with a BMI of 47.8. Stable - HPI History of Present Illness: Patient is a 53 y/o female who presented to the ED via EMS with complain of palpitations. She described it as pounding in her chest which felt like a closed fist in her throat. She checked her heart rate in an jane she has and it read as high as the 200's. Subsequent check read 160's. This happened around 5pm on 09/27/18 after she had just woken up from sleep. She has had intermittent palpitations for the past 7 days which are consistent with atrial fibrillation. She has history of hypothyroidism and recently had her TSH checked. It came back at 0.15. As a result her synthroid dose is being adjusted by her PCP. She has history of paroxysmal atrial fibrillation with last occurrence being about 9 months ago. She takes cardizem intermittently and took a 30mg pill about 1:30 pm on 09/27/18 She reports feeling light-headed, dyspneic and having a chest discomfort. She denies fever or chills, abdominal pain, nausea or vomiting. She reported some leg cramps for which she took methocarbamol EMS was called by her spouse. She was given diltiazem 25mg IV X1 and amiodarone 150mg IV X1. In the ED she received lopressor 5mg IV X [address] on a diltiazem drip. At the time of presentation, it was at a rate of 15mg/hr and her pulse fluctuated between 70's and 130's - HOSPITAL COURSE Hospital Course: Patient was admitted for RVR atrial fibrillation for which pharmacological cardioversion was achieved after diltiazem drip was titrated to an eventual wean and discontinued. Patient was subsequently transitioned over to Tambocor 50 mg p.o. twice daily along with diltiazem 120 mg p.o. twice daily for which patient did not develop any further arrhythmias and vital signs were hemodynamically stable upon discharge. Patient's CBC electrolytes as well as renal function were all unremarkable. In addition patient with hypothyroidism with a query on possible autoimmune thyroiditis however TFTs were within normal limits. For set of troponins were essentially unremarkable. Patient had a EKG to confirm patient's to pharmacological cardioversion to a normal sinus rhythm and the need for stress testing without angina that is deemed classical with a normal stress test November 2017 would not be needed for this admission. Patient was able to obtain a closer follow-up with cardiology at [place] for 09/30/18 in a.m. Patient did develop atypical type chest pain for which she was previously on meloxicam as well as Robaxin to be continued as an outpatient and no further chest pain was noted other than reproducible chest pain in ICU. On admission patient had a CHADS of 0 therefore not anticoagulated. Patient was given aspirin 81 mg p.o. daily along with nitroglycerin as needed for her atypical chest pain. At the time she was having chest pain EKG showed again normal sinus rhythm with LVH criteria no ST T wave abnormalities, similar to first EKG taken after patient was pharmacologically cardioverted. Patient to have follow-up with PCP 1-2 weeks. Patient likely will need electro physiology evaluation and testing to be referred by primary cardiology at [facility]. Meanwhile will Rx patient Tambocor 50 mill grams p.o. twice daily along with diltiazem 120 mg p.o. twice daily. Patient was hemodynamically stable and chest pain-free upon discharge. - ALLERGIES Allergies/Adverse Reactions: Allergies Allergy/AdvReac Type Severity Reaction Status Date / Time Penicillins Allergy Severe Hives Verified 09/28/18 11:48 doxycycline AdvReac Severe Emesis Verified 09/28/18 11:48 trazodone AdvReac Severe Emesis Verified 09/28/18 11:48 codeine AdvReac Intermediate Emesis Verified 09/28/18 11:48 - MEDICATIONS Home Medications: Ambulatory Orders Medication Instructions Recorded Confirmed Acyclovir 400 mg PO BID 06/28/16 09/28/18 Levothyroxine [Synthroid] 224 mcg PO MOTUWETHFR@0700 06/28/16 09/28/18 Meloxicam 15 mg PO DAILY 06/28/16 09/28/18 Aspirin [Aspirin EC] 81 mg PO DAILY 09/28/18 09/28/18 Cholecalciferol (Vitamin D3) 10,000 unit PO DAILY 09/28/18 09/28/18 [Decara] Hydrocodone/Acetaminophen 1 tab PO Q8H PRN 09/28/18 09/28/18 [Hydrocodone-Acetamin 5-325 mg] Levothyroxine [Synthroid] 112 mcg PO SUSA@0700 09/28/18 09/28/18 Methocarbamol 500 mg PO TID PRN 09/28/18 09/28/18 Omeprazole 20 mg PO DAILY 09/28/18 09/28/18 Sertraline HCl 50 mg PO DAILY 09/28/18 09/28/18 Turmeric Root Extract [Turmeric] 1,500 mg PO DAILY 09/28/18 09/28/18 Vitamin B Complex [Balanced B-50] 1 each PO DAILY 09/28/18 09/28/18 Flecainide [Tambocar] 50 mg PO BID #60 tablet 09/29/18 diltiaZEM CD [Cardizem Cd] 120 mg PO BID #60 capsule 09/29/18 - PHYSICAL EXAM AT DISCHARGE General Appearance: positive: No acute distress, Alert, Other (Morbidly obese) Eyes Bilateral: positive: Normal inspection, PERRL, EOMI ENT: positive: ENT inspection nml, Pharynx nml, No signs of dehydration Neck: positive: Nml inspection, Thyroid nml, No JVD, Trachea midline. negative: Thyromegaly Respiratory: positive: Chest non-tender, No respiratory distress, Breath sounds nml Cardiovascular: positive: Regular rate & rhythm, No murmur, No gallop Peripheral Pulses: positive: 2+ Abdomen: positive: Non-tender, No organomegaly, Nml bowel sounds, No distention. negative: Tenderness Back: positive: Nml inspection Skin: positive: Color nml, No rash, Warm Extremities: positive: Non-tender, Full ROM, Nml appearance Neurologic/Psychiatric: positive: Oriented x3, CN's nml (2-12) - LABS Result Diagrams: 09/29/18 06:42 09/29/18 06:42 - DIAGNOSTIC IMAGING Diagnostic Imaging Results: Final report reviewed - SEPSIS Current Stage of Sepsis: Ruled out - QUALITY (Female Hip Fx Only) Was patient sent home on osteoporosis medication?: No - FOLLOW UP Follow Up: Patient has appointment to cardiology in [place] on 09/30/18 at 8:30 AM. Will follow up with PCP at Dr. Tanika Díaz in 1 or 2 weeks. - TIME SPENT Time Spent in Discharge (Minutes): 35
--- NOTE | 2018-09-29 08:44 | Discharge Plan ---
Discharge Plan Disposition: 01 Home, Self Care Condition: Good Prescriptions: diltiaZEM CD [Cardizem Cd] 120 mg PO BID #60 capsule Flecainide [Tambocar] 50 mg PO BID #60 tablet Diet: Regular Activity Restrictions: No Restrictions Shower Restrictions: No Driving Restrictions: No Instruction Topics: Atrial Fibrillation, Stroke Prevent Live W Atrial Fib Additional Instructions or Follow Up instructions: Patient has been instructed to keep appointments take all p.o. medications as prescribed to hold off on caffeine which can be found in green tea as well as in coffee and other products. Patient has been instructed to call PCP within 1 or 2 weeks to schedule an appointment and or to be seen sooner if patient continues to have chest pain with palpitations and recurrence of atrial fibrillation. No Smoking: If you smoke, Please STOP! Call for help. Follow-up with: Emani Anderson MD [Provider Admit Priv/Credential] - (Patient has a scheduled follow-up appointment on 09/30/18 at 8:[address] [facility]) Bre Sagastume ARNP [Primary Care Provider] - 2 Weeks (Patient to follow-up with PCP in 1-2 weeks)
[2018-09-29] MEDS ORDERED: SERTRALINE 50 MG TABLET PO SCH (09:00)
[2018-09-29] MEDS ORDERED: CHOLECALCIFEROL 5,000 UNIT CAPSULE PO SCH (09:00)
[2018-09-29] MEDS: diltiaZEM CD 120 MG CAPSULE PO SCH (10:02)
[2018-09-29 10:41] VITALS: BP 132/78
[2018-10-02] MEDS ORDERED: LEVOTHYROXINE 112 MCG TABLET PO SCH (07:00)
== END 2018-09-29 10:50 | disposition home or self-care (01) | DRG 309 ==
LOC: EDUNIT# → ED 19:00 → ICU 21:57
PROVIDERS: ADMIT Internal Medicine; ATTEND Family Medicine
DX: I48.0 Paroxysmal atrial fibrillation (principal); Z68.42 Body mass index [BMI] 45.0-49.9, adult; E03.9 Hypothyroidism, unspecified; Z90.49 Acquired absence of other specified parts of digestive tract; Z79.52 Long term (current) use of systemic steroids; Z88.6 Allergy status to analgesic agent; Z88.0 Allergy status to penicillin; K21.9 Gastro-esophageal reflux disease without esophagitis; F32.9 Major depressive disorder, single episode, unspecified; J45.909 Unspecified asthma, uncomplicated; M62.838 Other muscle spasm; E66.01 Morbid (severe) obesity due to excess calories
CPT/HCPCS: 36415; 71275; 80048; 80053; 83690; 83735; 83880; 84100; 84439; 84443; 84481; 84484; 85025; 86376; 86800; 87150; 93005; 94660; 96361; 96374; 99283; A9270; J1650; Q9967; 99284

== ENCOUNTER 2018-10-11 07:29 | Outpatient (CLI) | payer BC | END 2018-10-11 07:30 | disposition home or self-care (01) | LOC: LAB 07:29 | PROVIDERS: ATTEND Physician Assistant | DX: E03.9 Hypothyroidism, unspecified (principal) | CPT/HCPCS: 36415; 84443 ==

== ENCOUNTER 2018-11-01 07:34 | Outpatient (CLI) | payer BC | END 2018-11-01 07:35 | disposition home or self-care (01) | LOC: LAB 07:34 | PROVIDERS: ATTEND Registered Nurse | DX: E03.9 Hypothyroidism, unspecified (principal) | CPT/HCPCS: 36415; 84443 ==

== ENCOUNTER 2018-12-01 15:46 | Outpatient (CLI) | payer BC | END 2018-12-01 15:47 | disposition home or self-care (01) | LOC: SC 15:46 | PROVIDERS: ATTEND Nurse Practitioner Family | DX: G47.33 Obstructive sleep apnea (adult) (pediatric) (principal); G47.00 Insomnia, unspecified | CPT/HCPCS: 99212; 99214 ==

== ENCOUNTER 2018-12-13 07:57 | Outpatient (CLI) | payer BC ==
[2018-12-13 08:15] LABS: BASOPHILS % (AUTO) 0.6 %; EOSINOPHILS # (AUTO) 0.1 10^3/uL (0.0-0.7); EOSINOPHILS % (AUTO) 3.2 %; LYMPHOCYTES # (AUTO) 1.9 10^3/uL (1.5-3.5); LYMPHOCYTES % (AUTO) 46.6 %; MEAN CORPUSCULAR HEMOGLOBIN 32.6 pg (27.0-31.0); MEAN CORPUSCULAR VOLUME 95.9 fL (81.0-99.0); MEAN PLATELET VOLUME 9.2 fL (7.9-10.8); MONOCYTES # (AUTO) 0.4 10^3/uL (0.0-1.0); MONOCYTES % (AUTO) 9.5 %; NEUTROPHILS # (AUTO) 1.6 10^3/uL (1.5-6.6); NEUTROPHILS % (AUTO) 40.1 %; PLT - PLATELET COUNT 131 10^3/uL (130-450); RED CELL DISTRIBUTION WIDTH 13.8 % (12.0-15.0); WHITE BLOOD COUNT 4.1 x10^3/uL (4.8-10.8)
[2018-12-13 08:42] LABS: % IRON SATURATION 23 % (20-50); IRON 71 ug/dL (28-170); TOTAL IRON BINDING CAPACITY 307 ug/dL (250-450); TRANSFERRIN 219 mg/dL (192-382)
[2018-12-13 08:46] LABS: THYROID STIMULATING HORMONE 14.57 uIU/mL (0.34-5.60)
[2018-12-13 08:51] LABS: FERRITIN 43.6 ng/mL (11.0-306.8)
== END 2018-12-13 07:58 | disposition home or self-care (01) ==
LOC: LAB 07:57
PROVIDERS: ATTEND Registered Nurse
DX: E03.9 Hypothyroidism, unspecified (principal); Z86.39 Personal history of other endocrine, nutritional and metabolic disease; E55.9 Vitamin D deficiency, unspecified
CPT/HCPCS: 36415; 82306; 82728; 83540; 84443; 84466; 85025

== ENCOUNTER 2019-01-24 08:16 | Outpatient (CLI) | payer BC ==
[2019-01-24 09:11] LABS: BASOPHILS % (AUTO) 0.7 %; EOSINOPHILS # (AUTO) 0.2 10^3/uL (0.0-0.7); EOSINOPHILS % (AUTO) 5.4 %; HGB - HEMOGLOBIN 13.3 g/dL (12.0-16.0); LYMPHOCYTES # (AUTO) 1.9 10^3/uL (1.5-3.5); LYMPHOCYTES % (AUTO) 43.3 %; MEAN CORPUSCULAR HEMOGLOBIN 33.9 pg (27.0-31.0); MEAN CORPUSCULAR HGB CONC 34.8 g/dL (32.0-36.0); MEAN CORPUSCULAR VOLUME 97.4 fL (81.0-99.0); MEAN PLATELET VOLUME 11.8 fL (7.9-10.8); MONOCYTES # (AUTO) 0.4 10^3/uL (0.0-1.0); MONOCYTES % (AUTO) 8.8 %; NEUTROPHILS # (AUTO) 1.8 10^3/uL (1.5-6.6); NEUTROPHILS % (AUTO) 41.3 %; PLT - PLATELET COUNT 140 10^3/uL (130-450); RED BLOOD COUNT 3.92 10^6/uL (4.20-5.40); RED CELL DISTRIBUTION WIDTH 12.6 % (12.0-15.0); WHITE BLOOD COUNT 4.4 x10^3/uL (4.8-10.8)
== END 2019-01-24 08:17 | disposition home or self-care (01) ==
LOC: LAB 08:16
PROVIDERS: ATTEND Registered Nurse
DX: E03.9 Hypothyroidism, unspecified (principal); D72.819 Decreased white blood cell count, unspecified
CPT/HCPCS: 36415; 84443; 85025

== ENCOUNTER 2019-01-25 | Outpatient (CLI) | payer BC | END 2019-01-25 15:43 | disposition home or self-care (01) | DX: G47.33 Obstructive sleep apnea (adult) (pediatric) (principal) | CPT/HCPCS: 99212; 99215 ==

== ENCOUNTER 2019-05-30 07:43 | Outpatient (CLI) | payer BC | END 2019-05-30 07:44 | disposition home or self-care (01) | LOC: LAB 07:43 | PROVIDERS: ATTEND Registered Nurse | DX: E03.9 Hypothyroidism, unspecified (principal) | CPT/HCPCS: 36415; 84443 ==

== ENCOUNTER 2019-06-02 15:56 | Outpatient (CLI) | payer BC | END 2019-06-02 15:57 | disposition home or self-care (01) | LOC: RT 15:56 | PROVIDERS: ATTEND Internal Medicine Cardiovascular Disease | DX: I48.91 Unspecified atrial fibrillation (principal) | CPT/HCPCS: 93005 ==

== ENCOUNTER 2019-07-13 11:28 | Outpatient (CLI) | payer BC ==
[2019-07-13 11:55] VITALS: BP 100/70
--- NOTE | 2019-07-13 11:55 | SLEEP CARE CONSULTATION ---
Information from patient questionnaire entered by Michaelle Pandya. I have reviewed and concur with the information entered by Michaelle Pandya. This document represents the service I personally performed and the decisions made by me, Cammy Escudero, RN, MSN, NET MAKER. History of Present Illness Previous diagnosis: Moderate, Obstructive Sleep Apnea-Hypopnea Syndrome AHI: 18.5 Reason for follow up: six month Equipment type: CPAP Equipment obtained from: [employer] Mask style: Nasal pillows Mask brand: Respironics Backup mask available: Yes Last cushion change: a couple of days ago CPAP Compliance Data - Data Reviewed with Patient Average duration of nightly device use: 7.95 Compliance rate %: 91.1 (180 days) Current pressure setting (cmH2O): 6-9 Humidity settin Heated hose settin Average residual AHI: 3.5 Average large leak: 40 sec Subjective Initial Sutter Sleepiness Scale score: 9 Current Sutter Sleepiness Scale score: 3 Allergies and Home Medications Known drug allergies: Yes Home medication list reviewed: Yes ( stopped sertraline to decrease RLS / stopped omeprazole since diet changes) Allergy and home medication list: metoprolol 25mg HS ( replaced cardizem) flecanide 50mg bid levothyroxin 150mcg daily acyclovir 400mg po bid aspirin 81mg daily vitamin D 10,000 units daily vitamin B complex daily turmeric root extract 1,500 mg daily meloxicam 15mg po daily hydrocodone acetaminophen 1 tab po every 8 hours prn Review of Systems Review of systems same as previous: Yes Physical Exam Blood Pressure: 100/70 Cuff size: long Heart Rate: 71 O2 Saturation: 97 Height: 5 ft 6.25 in Weight: 272 lb 9.6 oz Weight change since last visit: lost 8 pounds Body Mass Index: 43.7 BMI Classification: Obesity Class 3 Impression and Plan 1. Obstructive Sleep Apnea-Hypopnea Syndrome, moderate, with good treatment compliance and good apnea control. On CPAP therapy, the patient has better sleep quality and is more rested overall. 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 She is very pleased with benefit of CPAP treatment. She continues to lose weight and praised for effort. She is aware of cardiac and diabetic health risks of morbid obesity. I discussed how significant weight loss could reduce her apnea as well as her CPAP pressure requirements. Her current autoCPAP range should accommodate for some weight loss. Symptoms to report for additional pressure adjustments discussed. Patient's apnea severity and rationale for treatment to reduce apnea, improve sleep quality and reduce cardiovascular and cerebrovascular events was reviewed. I also reviewed the benefit of consistent device use of CPAP for arrhythmia. * Continue CPAP pressure at 6-9 cmH2O * Notify me if snoring with mask or feeling that the pressure is too much or too little * Continue to lose weight * Call this office if any problems using CPAP * Return for follow up in 1 year , or sooner if concerns arise Time Spent with Patient (minutes): 16 I spent 100% of this visit face to face with the patient with greater than 50% of this was spent time counseling the patient and coordination of care.
== END 2019-07-13 11:29 | disposition home or self-care (01) ==
LOC: SC 11:28
PROVIDERS: ATTEND Nurse Practitioner Family
DX: G47.33 Obstructive sleep apnea (adult) (pediatric) (principal); E66.9 Obesity, unspecified; Z68.41 Body mass index [BMI] 40.0-44.9, adult
CPT/HCPCS: 99212; 99213

== ENCOUNTER 2019-09-13 15:01 | Outpatient (CLI) | payer BC | END 2019-09-13 15:02 | disposition home or self-care (01) | LOC: COV 15:01 | PROVIDERS: ATTEND Family Medicine | DX: R05 Cough (principal); R50.9 Fever, unspecified | CPT/HCPCS: 81599 ==

== ENCOUNTER 2019-10-24 16:46 | Outpatient (CLI) | payer BC | END 2019-10-24 16:47 | disposition home or self-care (01) | LOC: COV 16:46 | PROVIDERS: ATTEND Family Medicine | DX: R53.83 Other fatigue (principal); J02.9 Acute pharyngitis, unspecified | CPT/HCPCS: 81599 ==

== ENCOUNTER 2019-11-06 15:36 | Emergency (ER) | payer BC ==
[2019-11-06] MEDS ORDERED: KETOROLAC 60 MG/2 ML VIAL IM STA (16:19)
--- NOTE | 2019-11-06 16:21 | ED Physician Documentation ---
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 She did have a couple of falls and is not sure if the falls were causative or may be secondary or may be unrelated. She did not really have any pain per se after the fall. She describes severe back pain starting in the right low back and then radiating to the left low back. She has some urinary frequency with it but no incontinence. No fevers. She has had mild back pain before but never this severe or in this pattern. She denies weakness, numbness, tingling, or saddle anesthesia. 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 - Present Medications Home Medications: Ambulatory Orders Medication Instructions Recorded Confirmed Acyclovir 400 mg PO BID 06/28/16 09/28/18 Levothyroxine [Synthroid] 224 mcg PO MOTUWETHFR@0700 06/28/16 09/28/18 Meloxicam 15 mg PO DAILY 06/28/16 09/28/18 Aspirin [Aspirin EC] 81 mg PO DAILY 09/28/18 09/28/18 Cholecalciferol (Vitamin D3) 10,000 unit PO DAILY 09/28/18 09/28/18 [Decara] Hydrocodone/Acetaminophen 1 tab PO Q8H PRN 09/28/18 09/28/18 [Hydrocodone-Acetamin 5-325 mg] Levothyroxine [Synthroid] 112 mcg PO SUSA@0700 09/28/18 09/28/18 Omeprazole 20 mg PO DAILY 09/28/18 09/28/18 Sertraline HCl 50 mg PO DAILY 09/28/18 09/28/18 Turmeric Root Extract [Turmeric] 1,500 mg PO DAILY 09/28/18 09/28/18 Vitamin B Complex [Balanced B-50] 1 each PO DAILY 09/28/18 09/28/18 methocarbamoL [Methocarbamol] 500 mg PO TID PRN 09/28/18 09/28/18 Flecainide [Tambocar] 50 mg PO BID #60 tablet 09/29/18 diltiaZEM CD [Cardizem Cd] 120 mg PO BID #60 capsule 09/29/18 predniSONE [Deltasone] 20 mg PO [id number] #21 tab 11/06/19 - Allergies Allergies/Adverse Reactions: Allergies Allergy/AdvReac Type Severity Reaction Status Date / Time Penicillins Allergy Severe Hives Verified 11/06/19 15:40 doxycycline AdvReac Severe Emesis Verified 11/06/19 15:40 trazodone AdvReac Severe Emesis Verified 11/06/19 15:40 codeine AdvReac Intermediate Emesis Verified 11/06/19 15:40 - Social History Does the pt smoke?: No Smoking Status: Never smoker Does the pt drink ETOH?: Yes Does the pt have substance abuse?: No - Immunizations Immunizations are current?: Yes - POLST Patient has POLST: No PD ED PE NORMAL - Vitals Vital signs reviewed: Yes - General General: Alert and oriented X 3, Other (She appears uncomfortable, is laying with her legs flexed. She winces mildly with motion.) - Abdomen Abdomen: Normal bowel sounds, Soft, Non tender - Back Back: Other (Severe tenderness to the lumbar spine) - Extremities Extremities: Other (The patient has equal and normal Achilles and patellar reflexes bilaterally. Normal sensation in all areas of the legs. Patient denies saddle anesthesia. Normal strength in flexion-extension at the ankles, knees, and flexion of the hips.) - Neuro Neuro: Alert and oriented X 3, Normal speech Results - Vitals Vitals: Vital Signs - 24 hr 11/06/19 11/06/19 15:40 17:41 Temperature 36.5 C Heart Rate 81 70 Respiratory 16 16 Rate Blood Pressure 132/83 H 119/62 O2 Saturation 96 100 Oxygen O2 Source Room air - Labs Labs: Laboratory Tests 11/06/19 11/06/19 16:30 16:30 WBC 4.7 L RBC 3.90 L Hgb 13.2 Hct 38.6 MCV 99.0 MCH 33.8 H MCHC 34.2 RDW 12.8 Plt Count 169 MPV 9.8 Neut # (Auto) 2.4 Lymph # (Auto) 1.7 [place] # (Auto) 0.4 Eos # (Auto) 0.3 Baso # (Auto) 0.0 Absolute Nucleated RBC 0.00 Nucleated RBC % 0.0 Sodium 136 Potassium 4.3 Chloride 103 Carbon Dioxide 25 Anion Gap 8.0 BUN 21 H Creatinine 0.9 Estimated GFR (MDRD) 65 L Glucose 102 H Calcium 9.4 Total Bilirubin 0.7 AST 21 ALT 24 Alkaline Phosphatase 64 Total Protein 6.6 L Albumin 4.1 Globulin 2.5 Albumin/Globulin Ratio 1.6 Lipase 34 PD MEDICAL DECISION MAKING - ED course ED course: 54-year-old woman's presents with severe low back pain, no hard signs for cauda equina but CT imaging was done given the potential trauma history which showed a lot of degenerative changes but nothing acute. She was feeling much better after Toradol. She has some narcotics and muscle relaxers at home but she does not find those very helpful. Departure - Departure Disposition: 01 Home, Self Care Clinical Impression: Back pain, Back injury Condition: Good Record reviewed to determine appropriate education?: Yes Instructions: ED Low Back Pain Injury Prescriptions: predniSONE [Deltasone] 20 mg PO [id number] #21 tab Comments: Call your doctor to arrange a follow-up appointment, make the next available appointment. In the interim, return anytime if worse or if new symptoms develop. Forms: Activity restrictions
[2019-11-06 16:35] LABS: BASOPHILS % (AUTO) 0.4 %; EOSINOPHILS # (AUTO) 0.3 10^3/uL (0.0-0.7); EOSINOPHILS % (AUTO) 6.4 %; HGB - HEMOGLOBIN 13.2 g/dL (12.0-16.0); LYMPHOCYTES # (AUTO) 1.7 10^3/uL (1.5-3.5); MEAN CORPUSCULAR HEMOGLOBIN 33.8 pg (27.0-31.0); MEAN CORPUSCULAR HGB CONC 34.2 g/dL (32.0-36.0); MEAN PLATELET VOLUME 9.8 fL (7.9-10.8); MONOCYTES # (AUTO) 0.4 10^3/uL (0.0-1.0); MONOCYTES % (AUTO) 7.8 %; NEUTROPHILS # (AUTO) 2.4 10^3/uL (1.5-6.6); NEUTROPHILS % (AUTO) 49.8 %; PLT - PLATELET COUNT 169 10^3/uL (130-450); RED CELL DISTRIBUTION WIDTH 12.8 % (12.0-15.0); WHITE BLOOD COUNT 4.7 x10^3/uL (4.8-10.8)
[2019-11-06 16:48] LABS: ALBUMIN 4.1 g/dL (3.2-5.5); ALBUMIN/GLOBULIN RATIO 1.6 (1.0-2.2); BILIRUBIN,TOTAL 0.7 mg/dL (0.2-1.0); CALCIUM 9.4 mg/dL (8.5-10.3); CREATININE 0.9 mg/dL (0.4-1.0); TOTAL PROTEIN 6.6 g/dL (6.7-8.2)
[2019-11-06 17:42] VITALS: BP 119/62
--- NOTE | 2019-11-06 18:21 | CT Report ---
Reason: back pain Procedure Date: 11/06/2019 Accession Number: [id number] / [id number] Procedure: CT - LUMBAR SPINE WO CPT Code: Final Report FULL RESULT: EXAM: CT LUMBAR SPINE WITHOUT CONTRAST EXAM DATE: 11/06/2019 05:16 PM. CLINICAL HISTORY: Back pain. COMPARISONS: ABDOMEN/PELVIS W05/07/2017 3:57 AM. TECHNIQUE: Thin-section axial images were acquired of the lumbar spine from T12 to S1 without contrast. Post-processing: Coronal and sagittal reformats. Other: None. In accordance with CT protocol optimization, one or more of the following dose reduction techniques were utilized for this exam: automated exposure control, adjustment of mA and/or KV based on patient size, or use of iterative reconstructive technique. FINDINGS: Alignment: Minimal right convex curvature centered at L3-L4. Grade 1 anterolisthesis of L2 on L3 measuring 4 mm. Bones: Five [id number] lumbar vertebral bodies are present. No fractures or bone lesions. Disk Levels/Facets: T11-T12: Moderate disk height loss. Disk osteophyte complex without significant bony central canal stenosis or neural foraminal narrowing. T12-L1: Mild right facet arthropathy causing mild right bony neural foraminal narrowing. No significant bony central canal stenosis. L1-L2: Moderate right facet arthropathy. No significant bony central canal stenosis or neural foraminal narrowing. L2-L3: Mild disk height loss. Disk osteophyte complex, moderate bilateral facet arthropathy, and ligamentum flavum hypertrophy superimposed on grade 1 anterolisthesis causing mild central canal stenosis and mild left bony neural foraminal narrowing. L3-L4: Moderate right and mild left facet arthropathy. No significant bony central canal stenosis or neural foraminal narrowing. L4-L5: Moderate left and mild right facet arthropathy. No significant bony central canal stenosis or neural foraminal narrowing. L5-S1: Moderate disk height loss. Disk osteophyte complex and mild right facet arthropathy causing mild bilateral bony neural foraminal narrowing. No significant bony central canal stenosis. Other: Post cholecystectomy. No paravertebral hematoma or edema is evident. IMPRESSION: 1. Multilevel degenerative disk disease and facet arthropathy, as detailed above, with unchanged associated grade 1 anterolisthesis at L2-L3. 2. No acute bony abnormality. RADIA
[2019-11-06] MEDS ORDERED: predniSONE 20 MG TABLET PO STA (18:32)
== END 2019-11-06 18:43 | disposition home or self-care (01) ==
LOC: ED 15:36
DX: S39.92XA Unspecified injury of lower back, initial encounter (principal); W19.XXXA Unspecified fall, initial encounter; Z91.81 History of falling; M19.90 Unspecified osteoarthritis, unspecified site; I48.91 Unspecified atrial fibrillation; J45.909 Unspecified asthma, uncomplicated; G47.30 Sleep apnea, unspecified; E03.9 Hypothyroidism, unspecified; K21.9 Gastro-esophageal reflux disease without esophagitis; F32.9 Major depressive disorder, single episode, unspecified; Z79.82 Long term (current) use of aspirin
CPT/HCPCS: 36415; 72131; 80053; 83690; 85025; 96372; 99284; J7512

== ENCOUNTER 2019-12-05 07:40 | Outpatient (CLI) | payer BC ==
--- NOTE | 2019-12-05 09:41 | XRAY Report ---
Reason: OSTEOARTHRITIS OF RT HIP JOINT,LOW BACK PAIN Procedure Date: 12/05/2019 Accession Number: [id number] / [id number] Procedure: XR - Hips 2V BILAT CPT Code: Final Report FULL RESULT: PROCEDURE: Hips 2V BILAT INDICATIONS: OSTEOARTHRITIS OF RT HIP JOINT,LOW BACK PAIN TECHNIQUE: 2 views of the hip were acquired. COMPARISON: CT lumbar spine 11/06/2019, x-ray SI joints 12/05/2019 FINDINGS: Bones: No fractures or dislocations. No suspicious bony lesions. The visualized pelvic ring appears intact. There is moderate right and minimal left hip joint space narrowing. No erosions. Soft tissues: No suspicious soft tissue calcifications or masses. IMPRESSION: Early changes of osteoarthritis within the hips, right greater than left. Reviewed by: Divya De La Torre MD on 12/05/2019 9:40 AM PDT Approved by: Divya De La Torre MD on 12/05/2019 9:40 AM PDT Station ID: [id number]
--- NOTE | 2019-12-05 10:05 | XRAY Report ---
Reason: RIGHT HIP PAIN AN OSTEOARTHRITIS Procedure Date: 12/05/2019 Accession Number: [id number] / [id number] Procedure: XR - SI Joints CPT Code: Final Report FULL RESULT: PROCEDURE: SI Joints INDICATIONS: RIGHT HIP PAIN AN OSTEOARTHRITIS TECHNIQUE: 3 views of the sacroiliac joints were acquired. COMPARISON: None FINDINGS: Bones: No bony erosions or ankylosis. Mild bilateral sacroiliac joint osteoarthritic changes are seen with joint space narrowing and subchondral sclerosis. No suspicious bony lesions. No fractures. Soft tissues: Overlying bowel gas pattern is normal. No suspicious soft tissue densities. IMPRESSION: Mild bilateral sacroiliac joint osteoarthritic changes. No evidence of ankylosis or bony erosion. No fracture or dislocation. Reviewed by: Rodriguez Mckenzie MD on 12/05/2019 10:04 AM PDT Approved by: Rodriguez Mckenzie MD on 12/05/2019 10:04 AM PDT Station ID: [id number]
== END 2019-12-05 07:41 | disposition home or self-care (01) ==
LOC: DI 07:40
PROVIDERS: ATTEND Registered Nurse
DX: M16.0 Bilateral primary osteoarthritis of hip (principal); M47.898 Other spondylosis, sacral and sacrococcygeal region
CPT/HCPCS: 72202; 73521

== ENCOUNTER 2020-03-22 15:07 | Outpatient (CLI) | payer BC | END 2020-03-22 15:08 | disposition critical access hospital (66) | LOC: EMS 15:07 | PROVIDERS: ATTEND Surgery | DX: R07.89 Other chest pain (principal); R53.1 Weakness; R11.0 Nausea | CPT/HCPCS: A0425; A0427 ==

== ENCOUNTER 2020-03-22 15:30 | Emergency (ER) | payer BC ==
--- NOTE | 2020-03-22 15:57 | ED Physician Documentation ---
History of Present Illness - Stated complaint Stated Complaint: CHEST PRESSURE - Chief complaint Chief Complaint: Cardiac - History obtained from History obtained from: Patient - History of Present Illness Timing: Today Pain level max: 0 Pain level now: 0 - Additonal information Additional information: Patient is a 55-year-old female who presents to the emergency department complaining of feeling like she was in atrial fibrillation with rapid ventricular response earlier today. Self converted in the ambulance. Currently asymptomatic. She states last time this happened her thyroid medications need to be adjusted. No chest pain. No difficulty breathing. Nothing makes it better or worse. Review of Systems Constitutional: denies: Fever, Chills Ears: denies: Ear pain Nose: denies: Rhinorrhea / runny nose, Congestion Throat: denies: Oral lesions / sores, Sore throat Cardiac: reports: Palpitations Respiratory: denies: Cough GI: denies: Vomiting, Diarrhea Skin: denies: Rash Musculoskeletal: denies: Neck pain, Back pain Neurologic: denies: Headache PD PAST MEDICAL HISTORY - Past Medical History Cardiovascular: Atrial fibrillation Respiratory: Asthma, Sleep apnea, CPAP use Neuro: None Endocrine/Autoimmune: HyPOthyroidism GI: GERD : None Psych: Depression Musculoskeletal: Osteoarthritis Derm: None - Past Surgical History Past Surgical History: Yes 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 - Present Medications Home Medications: Ambulatory Orders Medication Instructions Recorded Confirmed Acyclovir 400 mg PO BID 06/28/16 09/28/18 Levothyroxine [Synthroid] 224 mcg PO MOTUWETHFR@0700 06/28/16 09/28/18 Meloxicam 15 mg PO DAILY 06/28/16 09/28/18 Aspirin [Aspirin EC] 81 mg PO DAILY 09/28/18 09/28/18 Cholecalciferol (Vitamin D3) 10,000 unit PO DAILY 09/28/18 09/28/18 [Decara] Hydrocodone/Acetaminophen 1 tab PO Q8H PRN 09/28/18 09/28/18 [Hydrocodone-Acetamin 5-325 mg] Levothyroxine [Synthroid] 112 mcg PO SUSA@0700 09/28/18 09/28/18 Omeprazole 20 mg PO DAILY 09/28/18 09/28/18 Sertraline HCl 50 mg PO DAILY 09/28/18 09/28/18 Turmeric Root Extract [Turmeric] 1,500 mg PO DAILY 09/28/18 09/28/18 Vitamin B Complex [Balanced B-50] 1 each PO DAILY 09/28/18 09/28/18 methocarbamoL [Methocarbamol] 500 mg PO TID PRN 09/28/18 09/28/18 Flecainide [Tambocar] 50 mg PO BID #60 tablet 09/29/18 diltiaZEM CD [Cardizem Cd] 120 mg PO BID #60 capsule 09/29/18 predniSONE [Deltasone] 20 mg PO [id number] #21 tab 11/06/19 Docusate Sodium 100 mg PO DAILY #30 capsule 01/26/20 Hydrocodone/Acetaminophen [[place] 1 each PO Q6H PRN #25 tablet 01/26/20 7.5-325 Tablet] Tizanidine HCl 4 mg PO TID PRN #25 capsule 01/26/20 diazePAM [Diazepam] 5 mg PO TID PRN #15 tablet 01/26/20 - Allergies Allergies/Adverse Reactions: Allergies Allergy/AdvReac Type Severity Reaction Status Date / Time Penicillins Allergy Severe Hives Verified 03/22/20 15:41 doxycycline AdvReac Severe Emesis Verified 03/22/20 15:41 trazodone AdvReac Severe Emesis Verified 03/22/20 15:41 codeine AdvReac Intermediate Emesis Verified 03/22/20 15:41 - Social History Does the pt smoke?: No Smoking Status: Never smoker Does the pt drink ETOH?: Yes Does the pt have substance abuse?: No - Immunizations Immunizations are current?: Yes - POLST Patient has POLST: No PD ED PE NORMAL - Vitals Vital signs reviewed: Yes - General General: Alert and oriented X 3, No acute distress, Well developed/nourished - HEENT HEENT: PERRL, Moist mucous membranes - Neck Neck: Supple, no meningeal sign - Cardiac Cardiac: RRR, Strong equal pulses - Respiratory Respiratory: No respiratory distress, Clear bilaterally - Abdomen Abdomen: Soft, Non tender, Non distended - Derm Derm: Warm and dry - Extremities Extremities: No edema - Neuro Neuro: Alert and oriented X 3 - Psych Psych: Normal mood, Normal affect Results - Vitals Vitals: Vital Signs - 24 hr 03/22/20 03/22/20 15:37 17:28 Temperature 36.7 C Heart Rate 86 80 Respiratory 16 23 Rate Blood Pressure 133/100 H 138/81 H O2 Saturation 98 98 Oxygen O2 Source Room air - EKG (time done) 1534 Rate: Rate (enter#) (84) Rhythm: NSR [place]: Normal Intervals: Normal AR QRS: Normal, LVH Ischemia: Normal ST segments - Labs Labs: Laboratory Tests 03/22/20 03/22/20 03/22/20 16:00 16:00 16:00 WBC 3.7 L RBC 3.94 L Hgb 13.2 Hct 39.7 MCV 100.8 H MCH 33.5 H MCHC 33.2 RDW 12.2 Plt Count 148 MPV 10.4 Neut # (Auto) 1.9 Lymph # (Auto) 1.2 [place] # (Auto) 0.4 Eos # (Auto) 0.3 Baso # (Auto) 0.0 Absolute Nucleated RBC 0.00 Nucleated RBC % 0.0 Sodium 142 Potassium 4.4 Chloride 107 Carbon Dioxide 27 Anion Gap 8.0 BUN 13 Creatinine 0.9 Estimated GFR (MDRD) 65 L Glucose 89 Calcium 9.4 Total Bilirubin 0.6 AST 16 ALT 23 Alkaline Phosphatase 60 Total Protein 6.5 L Albumin 3.9 Globulin 2.6 Albumin/Globulin Ratio 1.5 Lipase 21 L TSH 4.08 Free T4 1.08 PD MEDICAL DECISION MAKING - ED course Complexity details: reviewed results, re-evaluated patient, considered differential, d/w patient ED course: Patient with afib w/ rapid ventricular response. Self converted to sinus rhythm on the way to the emergency department. She states that last time this occurred it was secondary to her thyroid. No acute findings on laboratory testing today. No further medical issues at this time. Patient asymptomatic. Patient counseled regarding signs and symptoms for which I believe and urgent re-evaluation would be necessary. Patient with good understanding of and agreement to plan and is comfortable going home at this time This document was made in part using voice recognition software. While efforts are made to proofread this document, sound alike and grammatical errors may occur. Departure - Departure Disposition: 01 Home, Self Care Clinical Impression: Atrial fibrillation Qualifiers: Atrial fibrillation type: unspecified Qualified Code(s): I48.91 - Unspecified atrial fibrillation Condition: Good Instructions: ED Afib Follow-Up: Bre Sagastume ARNP [Primary Care Provider] - Within 1 week Comments: Return if you worsen. Follow up with your doctor for further care. Your thyroid tests are normal today. Forms: Activity restrictions Discharge Date/Time: 03/22/20 17:28
[2020-03-22 16:22] LABS: BASOPHILS % (AUTO) 0.5 %; EOSINOPHILS # (AUTO) 0.3 10^3/uL (0.0-0.7); EOSINOPHILS % (AUTO) 6.7 %; HGB - HEMOGLOBIN 13.2 g/dL (12.0-16.0); LYMPHOCYTES # (AUTO) 1.2 10^3/uL (1.5-3.5); LYMPHOCYTES % (AUTO) 31.6 %; MEAN CORPUSCULAR HEMOGLOBIN 33.5 pg (27.0-31.0); MEAN CORPUSCULAR HGB CONC 33.2 g/dL (32.0-36.0); MEAN CORPUSCULAR VOLUME 100.8 fL (81.0-99.0); MEAN PLATELET VOLUME 10.4 fL (7.9-10.8); MONOCYTES # (AUTO) 0.4 10^3/uL (0.0-1.0); MONOCYTES % (AUTO) 9.9 %; NEUTROPHILS # (AUTO) 1.9 10^3/uL (1.5-6.6); PLT - PLATELET COUNT 148 10^3/uL (130-450); RED BLOOD COUNT 3.94 10^6/uL (4.20-5.40); RED CELL DISTRIBUTION WIDTH 12.2 % (12.0-15.0); WHITE BLOOD COUNT 3.7 x10^3/uL (4.8-10.8)
[2020-03-22 16:39] LABS: ALBUMIN 3.9 g/dL (3.2-5.5); ALBUMIN/GLOBULIN RATIO 1.5 (1.0-2.2); BILIRUBIN,TOTAL 0.6 mg/dL (0.2-1.0); CALCIUM 9.4 mg/dL (8.5-10.3); CREATININE 0.9 mg/dL (0.4-1.0); TOTAL PROTEIN 6.5 g/dL (6.7-8.2)
[2020-03-22 16:52] LABS: THYROID STIMULATING HORMONE 4.08 uIU/mL (0.34-5.60)
[2020-03-22 16:55] LABS: FREE T4 (FREE THYROXINE) 1.08 ng/dL (0.58-1.64)
[2020-03-22 17:30] VITALS: BP 138/81
== END 2020-03-22 17:28 | disposition home or self-care (01) ==
LOC: EDUNIT# → ED 15:30
DX: I48.91 Unspecified atrial fibrillation (principal); Z79.82 Long term (current) use of aspirin
CPT/HCPCS: 36415; 80053; 83690; 84439; 84443; 85025; 93005; 99284

== ENCOUNTER 2020-03-25 14:04 | Outpatient (CLI) | payer BC | END 2020-03-25 14:05 | disposition critical access hospital (66) | LOC: EMS 14:04 | PROVIDERS: ATTEND Surgery | DX: R00.0 Tachycardia, unspecified (principal) | CPT/HCPCS: A0425; A0427 ==

== ENCOUNTER 2020-04-06 08:03 | Outpatient (CLI) | payer BC | END 2020-04-06 08:04 | disposition home or self-care (01) | LOC: RT 08:03 | PROVIDERS: ATTEND Internal Medicine Cardiovascular Disease | DX: I48.0 Paroxysmal atrial fibrillation (principal) | CPT/HCPCS: 93005 ==

== ENCOUNTER 2020-04-06 22:05 | Outpatient (CLI) | payer BC | END 2020-04-06 22:06 | disposition short-term general hospital (02) | LOC: EMS 22:05 | PROVIDERS: ATTEND Surgery | DX: R07.89 Other chest pain (principal) | CPT/HCPCS: A0425; A0427 ==

== ENCOUNTER 2020-05-04 13:29 | Outpatient (CLI) | payer BC | END 2020-05-04 13:30 | disposition short-term general hospital (02) | LOC: EMS 13:29 | PROVIDERS: ATTEND Surgery | DX: R00.0 Tachycardia, unspecified (principal); R00.2 Palpitations; R11.0 Nausea | CPT/HCPCS: A0425; A0427 ==

== ENCOUNTER 2020-05-08 07:42 | Outpatient (CLI) | payer BC ==
--- NOTE | 2020-05-08 09:20 | XRAY Report ---
PROCEDURE: Knee 3 View LT INDICATIONS: PAIN IN LEFT KNEE TECHNIQUE: 3 views of the left knee(s) were acquired. COMPARISON: None. FINDINGS: Bones: No fractures or dislocations. Medial femoral tibial compartment osteoarthritis is seen. No pa tellar subluxation. No suspicious bony lesions. Soft tissues: No joint effusion. No suspicious soft tissue calcifications. IMPRESSION: Medial femoral tibial compartment osteoarthritis. No left knee fracture or dislocation. No joint effusion. Reviewed by: Rodriguez Mckenzie MD on 05/08/2020 8:19 AM [facility] Approved by: Rodriguez Mckenzie MD on 05/08/2020 8:19 AM [facility] Station ID: [id number]
== END 2020-05-08 07:43 | disposition home or self-care (01) ==
LOC: DI 07:42
PROVIDERS: ATTEND Registered Nurse
DX: M17.12 Unilateral primary osteoarthritis, left knee (principal)

== ENCOUNTER 2020-05-12 14:13 | Outpatient (CLI) | payer BC | END 2020-05-12 14:14 | disposition short-term general hospital (02) | LOC: EMS 14:13 | PROVIDERS: ATTEND Surgery | DX: I49.9 Cardiac arrhythmia, unspecified (principal); R07.89 Other chest pain | CPT/HCPCS: A0425; A0427 ==

== ENCOUNTER 2020-05-16 10:53 | Outpatient (CLI) | payer BC | END 2020-05-16 10:54 | disposition home or self-care (01) | LOC: RT 10:53 | PROVIDERS: ATTEND Internal Medicine Cardiovascular Disease | DX: I48.0 Paroxysmal atrial fibrillation (principal) | CPT/HCPCS: 93005 ==

== ENCOUNTER 2020-06-28 15:56 | Outpatient (CLI) | payer BC ==
--- NOTE | 2020-06-28 15:54 | SLEEP CARE CONSULTATION ---
Information from patient questionnaire entered by Michaelle Pandya. I have reviewed and concur with the information entered by Michaelle Pandya. This document represents the service I personally performed and the decisions made by me, Cammy Escudero, RN, MSN, FLY MAKER. History of Present Illness Service Date and Time: 06/28/2020 1500 Previous diagnosis: Moderate, Obstructive Sleep Apnea-Hypopnea Syndrome AHI: 18.5 (in 2018) Equipment type: CPAP Equipment obtained from: [employer] (getting supplies as needed) Mask style: Nasal pillows Backup mask available: Yes (old mask ) Last cushion change: 2-3 months Prior sleep studies: Yes Year and Where: 2018 - [facility] Type of Sleep Study: Polysomnography CPAP Compliance Data - Data Reviewed with Patient Average duration of nightly device use: 7 hr 57 min Compliance rate %: 89.4 (180 days) Current pressure setting (cmH2O): 7-9 Humidity settin Heated hose settin Average residual AHI: 2.8 Average large leak: 20 sec Subjective Patient concerns: reports: condensation in mask/hose (2 times a month), other (increased arrhythmia noted past few months - increased palpitations past week for a few minutes and ablation planned). denies: aerophagia, mask discomfort, air blowing in eyes, mask leak noise, nasal congestion, dry mouth, nose, throat, epistaxis Observed to snore while using device: No Current pressure setting perceived as: comfortable On therapy, patient: reports: sleeping better, awakening more refreshed, being more awake and alert during the day, more rested overall, drowsiness while driving (much less - if noted on transition will pull through hooker.) Initial Blanco Sleepiness Scale score: 9 (in 2018) Current Blanco Sleepiness Scale score: 2 Allergies and Home Medications Known drug allergies: Yes (see list ) Home medication list reviewed: Yes (many changed as addressed) Allergy and home medication list: sotolal 80mg bid xeroltol 20mg daily levothyroxine 150mcg daily acyclovir 400mg bid - same Vitamin D 5000 daily pepcid 20mg daily tumeric 750mg bid vitamin daily metoprolol tartrate 100mg prn afib. - has monitor Tylenol 1000mg as needed up to tid prn pain Review of Systems Review of systems same as previous: No (atrial fib increase - ablation planned/ r knee tendinitis) Physical Exam Height: 5 ft 7 in Weight: 305 lb Body Mass Index: 47.7 BMI Classification: Morbidly Obese Impression and Plan 1. Obstructive Sleep Apnea-Hypopnea Syndrome, moderate , with good treatment compliance and goof apnea control. On CPAP therapy, the patient has better sleep quality and is more rested overall. 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 She recently tried a homepathic sleep aid Rescue Remedy and has awakened with palpitations lasting a few minutes, not long enough to check with her monitor to see if it is her atrial fibrillation. 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 She has an ablation scheduled next week for increase in her paroxysmal atrial fibrillation. At her last ablation, she was sedated but did not have her CPAP. She was informed she had to be bagged due to her apnea and is concerned it may occur again. Thus I will increase her autoCPAP range to 7-12 cmH20 to accomodate for sedation. Patient to contact me if the pressure range uncomfortable. I also advised her if she would like to follow up for intermittent difficulty in sleeping due to shift work. She declined at this time. She is working on trying to find a day position at her work and go back to school. In addition, she has gained weight this year, about 25 pounds and has had increased knee pain. Currently patients BMI is 47.0 obesity class . I again reviewed how morbid obesity increases the risk of apnea, CPAP pressure requirements and overall health risks especially cardiovascular and diabetes. Thus patient is advised to lose weight. She states has already signed up for [employer]. I informed her that I have had several patients successful with that program due to support system, accountability and plans available. I also discussed how weight loss can be done with reducing portion size also eating more slowly will allow more awareness of food intake and enjoyment of food while assisting patient to modify intake at each meal. A Patient encouraged to discuss their weight loss goals with their PCP. The patient's CPAP pressure range should accommodate some weight loss. Symptoms to report for additional pressure adjustment discussed. Patient's apnea severity and rationale for treatment to reduce apnea, improve sleep quality and reduce cardiovascular and cerebrovascular events was reviewed. I also reviewed the benefit of consistent device use of CPAP for arrhythmia. * * Change auto CPAP pressure to 7-12 cmH2O * Stop Rescue Remedy. * Notify me if snoring with mask or feeling that the pressure is too much or too little * Attempt to lose weight * Call this office if any problems using CPAP * Return for follow up in 1 year , or sooner if concerns arise Visit Type: Telehealth Video Video Type: Doximity Provider Statement: I spent 100% of the Telehealth Video Call with the patient with greater than 50% spent counseling the patient and coordination of care.
== END 2020-06-28 15:57 | disposition home or self-care (01) ==
LOC: SC 15:56
PROVIDERS: ATTEND Nurse Practitioner Family
DX: G47.33 Obstructive sleep apnea (adult) (pediatric) (principal); E66.01 Morbid (severe) obesity due to excess calories; Z68.42 Body mass index [BMI] 45.0-49.9, adult

== ENCOUNTER 2020-07-07 11:37 | Emergency (ER) | payer BC ==
[2020-07-07 12:07] LABS: BASOPHILS % (AUTO) 0.3 %; EOSINOPHILS # (AUTO) 0.1 10^3/uL (0.0-0.7); EOSINOPHILS % (AUTO) 2.7 %; HGB - HEMOGLOBIN 12.7 g/dL (12.0-16.0); LYMPHOCYTES # (AUTO) 1.2 10^3/uL (1.5-3.5); LYMPHOCYTES % (AUTO) 33.1 %; MEAN CORPUSCULAR HEMOGLOBIN 33.4 pg (27.0-31.0); MEAN CORPUSCULAR VOLUME 98.4 fL (81.0-99.0); MONOCYTES # (AUTO) 0.4 10^3/uL (0.0-1.0); MONOCYTES % (AUTO) 9.6 %; PLT - PLATELET COUNT 148 10^3/uL (130-450); RED CELL DISTRIBUTION WIDTH 12.9 % (12.0-15.0); WHITE BLOOD COUNT 3.8 x10^3/uL (4.8-10.8)
[2020-07-07 12:22] LABS: ALBUMIN 3.8 g/dL (3.2-5.5); ALBUMIN/GLOBULIN RATIO 1.4 (1.0-2.2); BILIRUBIN,TOTAL 0.5 mg/dL (0.2-1.0); CALCIUM 9.3 mg/dL (8.5-10.3); CREATININE 0.9 mg/dL (0.4-1.0); TOTAL PROTEIN 6.5 g/dL (6.7-8.2)
[2020-07-07] MEDS ORDERED: PROMETHAZINE INJ 12.5 MG in SODIUM CHLORIDE 0.9% 50 ML IV STA (12:34)
--- NOTE | 2020-07-07 12:38 | ED Physician Documentation ---
History of Present Illness - Stated complaint Stated Complaint: RAPID HEART RATE - Chief complaint Chief Complaint: Cardiac - History obtained from History obtained from: Patient - History of Present Illness Pain level max: 0 Pain level now: 0 - Additonal information Additional information: Patient is a 55-year-old female who presents to the emergency department stating that she had a cardiac ablation done 2 days ago for recurrent atrial fibrillation with rapid ventricular response. She states that last night around 8 PM she went back into A. fib with RVR. She took 2 of her metoprolol but continued to be in A. fib RVR this morning. When she arrived in the emergency department she spontaneously converted to a normal sinus rhythm. No chest pain. Did have mild shortness of breath when she was in rapid A. fib. Has some nausea. No recent changes to her medications. Nothing makes it better or worse Review of Systems Constitutional: denies: Fever, Chills Nose: denies: Rhinorrhea / runny nose, Congestion Throat: denies: Sore throat Cardiac: reports: Palpitations. 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 Cardiovascular: Other - Present Medications Home Medications: Ambulatory Orders Medication Instructions Recorded Confirmed Acyclovir 500 mg PO BID 06/28/16 03/25/20 Aspirin [Aspirin EC] 81 mg PO DAILY 09/28/18 03/25/20 Cholecalciferol (Vitamin D3) 5,000 unit PO DAILY 09/28/18 03/25/20 [Decara] Turmeric Root Extract [Turmeric] 750 mg PO DAILY 09/28/18 03/25/20 methocarbamoL [Methocarbamol] 500 mg PO TID PRN 09/28/18 03/25/20 Flecainide [Tambocar] 50 mg PO BID #60 tablet 09/29/18 03/25/20 Hydrocodone/Acetaminophen [[place] 1 each PO Q6H PRN #25 tablet 01/26/20 03/25/20 7.5-325 Tablet] Albuterol Sulf [Ventolin Hfa 1 - 2 puffs INH Q4HR PRN 03/25/20 03/25/20 Inhaler] Bupropion HCl [Bupropion Xl] 300 mg PO DAILY 03/25/20 03/25/20 Levothyroxine Sodium [Synthroid] 150 mcg PO DAILY 03/25/20 03/25/20 Metoprolol Succinate [Toprol Xl] 25 mg PO DAILY 03/25/20 03/25/20 - Allergies Allergies/Adverse Reactions: Allergies Allergy/AdvReac Type Severity Reaction Status Date / Time Penicillins Allergy Severe Hives Verified 07/07/20 11:40 doxycycline AdvReac Severe Emesis Verified 07/07/20 11:40 trazodone AdvReac Severe Emesis Verified 07/07/20 11:40 codeine AdvReac Intermediate Emesis Verified 07/07/20 11:40 - Social History Does the pt smoke?: No Smoking Status: Never smoker Does the pt drink ETOH?: Yes Does the pt have substance abuse?: No - Immunizations Immunizations are current?: Yes - POLST Patient has POLST: No PD ED PE NORMAL - Vitals Vital signs reviewed: Yes - General General: Alert and oriented X 3, No acute distress, Well developed/nourished - HEENT HEENT: PERRL, Moist mucous membranes - Neck Neck: Supple, no meningeal sign - Cardiac Cardiac: RRR, Strong equal pulses - Respiratory Respiratory: No respiratory distress, Clear bilaterally - Abdomen Abdomen: Soft, Non tender, Non distended - Derm Derm: Warm and dry - Extremities Extremities: No calf tenderness / cord - Neuro Neuro: Alert and oriented X 3 - Psych Psych: Normal mood, Normal affect Results - Vitals Vitals: Vital Signs - 24 hr 07/07/20 07/07/20 07/07/20 11:40 12:06 12:17 Temperature 36.9 C Heart Rate 36 L 74 69 Respiratory 18 27 H 19 Rate Blood Pressure 109/75 101/75 107/55 L O2 Saturation 96 95 96 Oxygen O2 Source Room air - EKG (time done) 1146 Rate: Rate (enter#) (72) [place]: Normal Intervals: Normal [place] QRS: Normal Ischemia: Non specific changes Compare to prior EKG: Unchanged from prior EKG - Labs Labs: Laboratory Tests 07/07/20 07/07/20 11:59 11:59 WBC 3.8 L RBC 3.80 L Hgb 12.7 Hct 37.4 MCV 98.4 MCH 33.4 H MCHC 34.0 RDW 12.9 Plt Count 148 MPV 10.0 Neut # (Auto) 2.0 Lymph # (Auto) 1.2 L [place] # (Auto) 0.4 Eos # (Auto) 0.1 Baso # (Auto) 0.0 Absolute Nucleated RBC 0.00 Nucleated RBC % 0.0 Sodium 140 Potassium 3.9 Chloride 104 Carbon Dioxide 25 Anion Gap 11.0 BUN 10 Creatinine 0.9 Estimated GFR (MDRD) 65 L Glucose 98 Calcium 9.3 Total Bilirubin 0.5 AST 27 ALT 33 Alkaline Phosphatase 64 Total Protein 6.5 L Albumin 3.8 Globulin 2.7 Albumin/Globulin Ratio 1.4 Lipase 16 L - Rads (name of study) cxr Radiology: Prelim report reviewed, EMP read contemporaneously, See rad report (No acute abnormality) PD MEDICAL DECISION MAKING - ED course Complexity details: reviewed results, re-evaluated patient, considered differential, d/w patient ED course: 55-year-old female presents to the emergency department with atrial fibrillation with rapid ventricular response. She spontaneously converted upon arrival to the emergency department. Received a small dose of Phenergan for nausea. Currently asymptomatic. Patient is well-appearing, nontoxic. Afebrile. No hypoxia. No respiratory distress. Patient counseled regarding signs and symptoms for which I believe and urgent re-evaluation would be necessary. Patient with good understanding of and agreement to plan and is comfortable going home at this time This document was made in part using voice recognition software. While efforts are made to proofread this document, sound alike and grammatical errors may occur. Departure - Departure Disposition: 01 Home, Self Care Clinical Impression: Atrial fibrillation with RVR Condition: Good Instructions: ED Afib Follow-Up: Bre Sagastume ARNP [Primary Care Provider] - Within 1 week Comments: You have spontaneously converted from atrial fibrillation with rapid ventricular response to a normal sinus rhythm. Please continue your medications at home. Follow-up with your gamma ray operator and your primary care doctor for further care.
--- NOTE | 2020-07-07 12:48 | XRAY Report ---
PROCEDURE: Chest 1 View X-Ray INDICATIONS: Chest pain TECHNIQUE: One view of the chest was acquired. COMPARISON: CT pulmonary angiogram 09/27/2018. CXR 11/18/2017. FINDINGS: Surgical changes and devices: None. Lungs and pleura: No pleural effusions or pneumothorax. Lungs appear clear. Low lung volumes. Mediastinum: Mediastinal contours appear normal. Heart size is normal. Bones and chest wall: No suspicious bony lesions. Overlying soft tissues appear unremarkable. IMPRESSION: No acute cardiopulmonary abnormality. Low lung volumes. Reviewed by: Favian Nathan MD on 07/07/2020 11:46 AM [facility] Approved by: Favian Nathan MD on 07/07/2020 11:46 AM [facility] Station ID: [id number]
[2020-07-07 13:40] VITALS: BP 104/52
--- OUTSIDE RECORDS SUMMARY | 2020-07-11 01:51 | EXTERNAL MEDICAL SUMMARY RPT | Continuity of Care Document ---
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 [facility] 2020-03-22 15:30 UNSPECIFIED ATRIAL [facility] FIBRILLATION 2020-03-25 14:31 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 [facility] 2020-03-25 14:31 PAROXYSMAL ATRIAL FIBRILLATION [facility] 2020-04-06 08:03 PAROXYSMAL ATRIAL FIBRILLATION [facility] 2020-04-06 22:05 OTHER CHEST PAIN [facility] 2020-05-02 00:00:00 Pain in joint involving lower [facility] 2020-05-02 00:00:00 Pain in left knee [facility] Care [facility] Anc[facility] Services [facility] 2020-05-02 00:00:00 Never smoker [facility] 2020-05-02 00:00:00 Knee pain [facility] 2020-05-12 15:49 Paroxysmal atrial fibrillation [employer] 2020-05-12 15:49 Chest pain, unspecified [employer] Allergies date description facility NO KNOWN ENVIRONMENTAL ALLERGIES [facility] BISMUTH SUBSALICYLATE [facility] dical Center CEFTRIAXONE [facility] Medic [facility] GADOLINIUM-CONTAINING CONTRAST MEDIA W [facility] PENICILLIN [facility] Medic [facility] NO KNOWN ALLERGIES [facility] DAIRY PRODUCTS [facility] NO ALLERGY INFORMATION AVAILABLE [facility] PENICILLINS [facility] NO KNOWN ALLERGIES [facility] Penicillins [facility] codeine [facility] doxycycline [facility] trazodone [facility] ASPIRIN [facility] PENICILLINS [facility] TETRACYCLINES \T\ [facility] NO KNOWN ALLERGIES [facility] AVOCADO (LAURUS PERSEA) [facility] CODEINE [facility] PENICILLIN [facility] BACLOFEN [facility] MEPERIDINE [facility] Penicillins [facility] codeine [facility] doxycycline [facility] trazodone [facility] Medications date description facility 2020-05-02 00:00:00 null [facility] [place] 2020-05-02 00:00:00 null [facility] [place] 2020-05-02 00:00:00 null [facility] [place] 2020-05-02 00:00:00 null [facility] [place] 2020-05-02 00:00:00 null [facility] [place] 2020-05-02 00:00:00 null [facility] [place] 2020-05-02 00:00:00 null [facility] [place] 2020-05-02 00:00:00 null [facility] [place] 2020-05-02 00:00:00 null [facility] [place] 2020-05-02 00:00:00 null [facility] [place] 2020-05-02 00:00:00 LEVOTHYROXINE SODIUM [facility] [place] 2020-05-02 00:00:00 METOPROLOL SUCCINATE [facility] [place] 2020-05-02 00:00:00 ASPIRIN CHEW [facility] [place] 2020-05-02 00:00:00 ACYCLOVIR [facility] [place] 2020-05-02 00:00:00 TURMERIC TABS [facility] [place] 2020-05-02 00:00:00 TURMERIC TABS [facility] [place] 2020-05-02 00:00:00 ACYCLOVIR [facility] [place] 2020-05-02 00:00:00 METOPROLOL SUCCINATE [facility] [place] 2020-05-02 00:00:00 LEVOTHYROXINE SODIUM [facility] [place] Results Social History date description facility 2020-05-02 00:00:00 Never smoker [facility] [place] Social History date description facility 2020-05-02 00:00:00 Never smoker [facility] [place] date description facility [id number]
== END 2020-07-07 13:43 | disposition home or self-care (01) ==
LOC: ED 11:37
DX: I48.91 Unspecified atrial fibrillation (principal); R11.0 Nausea; Z79.82 Long term (current) use of aspirin
CPT/HCPCS: 36415; 71045; 80053; 83690; 85025; 93005; 96360; 99284; J7040; 84484

== ENCOUNTER 2020-07-09 07:40 | Outpatient (CLI) | payer BC | END 2020-07-09 07:41 | disposition critical access hospital (66) | LOC: EMS 07:40 | PROVIDERS: ATTEND Surgery | DX: R00.0 Tachycardia, unspecified (principal) | CPT/HCPCS: A0425; A0427 ==

== ENCOUNTER 2020-07-09 08:04 | Emergency (ER) | payer BC ==
[2020-07-09] MEDS ORDERED: SOTALOL 80 MG TABLET PO STA (08:20)
--- NOTE | 2020-07-09 08:23 | ED Physician Documentation ---
History of Present Illness - Stated complaint Stated Complaint: AFIB - Chief complaint Chief Complaint: Cardiac - History obtained from History obtained from: Patient - History of Present Illness Timing: Enter time (344), Today - Additonal information Additional information: 55-year-old female with a history of intermittent atrial fibrillation usually has rapid ventricular response to the atrial fibrillation and she has been on a number of different medications she has had to be cardioverted previously she has had a number of cardioversions chemically as well and she has had an ablation done 4 days ago at [place]. She did have an episode of atrial fibrillation 2 days ago she made her way to the hospital and converted when she came into the emergency department room. She has maintained her other medications and this morning she is again in atrial fibrillation with a very rapid rate very symptomatic with this medics arrived were able to give her 25 mg of Cardizem and reduce her rate into the 130 range which was much more comfortable for the patient. Review of Systems Constitutional: denies: Fever Eyes: denies: Decreased vision Ears: denies: Ear pain Nose: denies: Rhinorrhea / runny nose, Congestion Throat: reports: Sore throat Cardiac: reports: Chest pain / pressure, Palpitations. denies: Pedal edema, Calf pain Respiratory: reports: Dyspnea, Cough GI: denies: Abdominal Pain, Nausea, Vomiting, Constipation, Diarrhea : denies: Dysuria, Frequency Skin: denies: Rash Musculoskeletal: denies: Neck pain, Back pain, Extremity pain Neurologic: denies: Generalized weakness, Focal weakness, Numbness PD PAST MEDICAL HISTORY - Past Medical History Cardiovascular: Atrial flutter, Atrial fibrillation Respiratory: Asthma, Sleep apnea, CPAP use Neuro: None Endocrine/Autoimmune: HyPOthyroidism GI: GERD : None Psych: Depression Musculoskeletal: Osteoarthritis Derm: None - Past Surgical History Past Surgical History: Yes 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 Cardiovascular: Other - Present Medications Home Medications: Ambulatory Orders Medication Instructions Recorded Confirmed Acyclovir 500 mg PO BID 06/28/16 07/09/20 Cholecalciferol (Vitamin D3) 5,000 unit PO DAILY 09/28/18 07/09/20 [Decara] Turmeric Root Extract [Turmeric] 750 mg PO DAILY 09/28/18 07/09/20 methocarbamoL [Methocarbamol] 500 mg PO TID PRN 09/28/18 07/09/20 Hydrocodone/Acetaminophen [[place] 1 each PO Q6H PRN #25 tablet 01/26/20 07/09/20 7.5-325 Tablet] Albuterol Sulf [Ventolin Hfa 1 - 2 puffs INH Q4HR PRN 03/25/20 07/09/20 Inhaler] Levothyroxine Sodium [Synthroid] 150 mcg PO DAILY 03/25/20 07/09/20 Famotidine [Pepcid] 20 mg PO BID 07/09/20 07/09/20 Metoprolol Tartrate [Lopressor] 100 mg PO Q6HR PRN 07/09/20 07/09/20 Rivaroxaban [Xarelto] 20 mg PO HS 07/09/20 07/09/20 Sotalol [Betapace] 80 mg PO BID 07/09/20 07/09/20 - Allergies Allergies/Adverse Reactions: Allergies Allergy/AdvReac Type Severity Reaction Status Date / Time Penicillins Allergy Severe Hives Verified 07/09/20 08:13 doxycycline AdvReac Severe Emesis Verified 07/09/20 08:13 trazodone AdvReac Severe Emesis Verified 07/09/20 08:13 codeine AdvReac Intermediate Emesis Verified 07/09/20 08:13 - Social History Does the pt smoke?: No Smoking Status: Never smoker Does the pt drink ETOH?: Yes Does the pt have substance abuse?: No - Immunizations Immunizations are current?: Yes - POLST Patient has POLST: No PD ED PE NORMAL - Vitals Vital signs reviewed: Yes (tachy) - General General: Alert and oriented X 3, No acute distress, Well developed/nourished - HEENT HEENT: Atraumatic, PERRL, EOMI - Neck Neck: Supple, no meningeal sign, No bony TTP - Cardiac Cardiac: Other (tachy and irregular with distant heart sounds. ) - Abdomen Abdomen: Soft, Non tender - Back Back: No CVA TTP, No spinal TTP - Derm Derm: Normal color, Warm and dry, No rash - Extremities Extremities: No deformity, No edema - Neuro Neuro: Alert and oriented X 3, installment loan collector 2-12 intact, No motor deficit, No sensory deficit, Normal speech Eye Opening: Spontaneous Motor: Obeys Commands Verbal: Oriented GCS Score: 15 - Psych Psych: Normal mood, Normal affect Results - Vitals Vitals: Vital Signs - 24 hr 07/09/20 07/09/20 07/09/20 08:13 08:27 08:34 Temperature 36 C L Heart Rate 132 H 117 H 116 H Respiratory 20 22 18 Rate Blood Pressure 104/69 89/58 L 127/67 O2 Saturation 98 96 97 07/09/20 07/09/20 07/09/20 08:40 08:45 08:53 Temperature Heart Rate 115 H 116 H 114 H Respiratory 18 19 16 Rate Blood Pressure 102/79 107/87 H 103/76 O2 Saturation 97 97 97 07/09/20 07/09/20 07/09/20 08:55 09:00 09:18 Temperature Heart Rate 92 59 L 61 Respiratory 23 18 24 Rate Blood Pressure 88/65 L 91/73 113/82 H O2 Saturation 96 97 96 07/09/20 07/09/20 07/09/20 09:30 09:35 10:37 Temperature Heart Rate 59 L 60 58 L Respiratory 18 16 19 Rate Blood Pressure 108/74 106/71 90/60 O2 Saturation 98 98 99 07/09/20 07/09/20 10:52 11:32 Temperature 37.1 C Heart Rate 63 64 Respiratory 15 15 Rate Blood Pressure 111/67 104/64 O2 Saturation 100 100 Oxygen O2 Source Room air - EKG (time done) 0808 Rate: Rate (enter#) (131) Rhythm: Atrial fibrillation QRS: LVH Compare to prior EKG: Changed from prior EKG (SPT 07-07-2020 rhythm has changed to afib, rate is faster and the LVH strain pattern is more pronounced. ) Computer interpretation: Agree with computer 0908 Rate: Rate (enter#) (68) Rhythm: NSR Compare to prior EKG: Changed from prior EKG (SPT one hour earlier the rhythm has changed to sinus the rate is decreased and the LVH with strain pattern is resolved. ) Computer interpretation: Agree with computer - Labs Labs: Laboratory Tests 07/09/20 07/09/20 07/09/20 08:25 08:25 08:25 WBC 4.2 L RBC 3.96 L Hgb 13.2 Hct 38.5 MCV 97.2 MCH 33.3 H MCHC 34.3 RDW 12.7 Plt Count 152 MPV 10.2 Neut # (Auto) 2.3 Lymph # (Auto) 1.3 L [place] # (Auto) 0.4 Eos # (Auto) 0.2 Baso # (Auto) 0.0 Absolute Nucleated RBC 0.00 Nucleated RBC % 0.0 Sodium 142 Potassium 4.1 Chloride 107 Carbon Dioxide 24 Anion Gap 11.0 BUN 12 Creatinine 0.8 Estimated GFR (MDRD) 74 L Glucose 108 H Calcium 9.6 Total Bilirubin 0.6 AST 21 ALT 30 Alkaline Phosphatase 64 Troponin I High Sens 112.7 H* B-Natriuretic Peptide Total Protein 6.9 Albumin 3.8 Globulin 3.1 Albumin/Globulin Ratio 1.2 Lipase 24 TSH Thyroxine (T4) Urine Color Urine Clarity Urine pH Ur Specific [place] Urine Protein Urine Glucose (UA) Urine Ketones Urine Occult Blood Urine Nitrite Urine Bilirubin Urine Urobilinogen Ur Leukocyte Esterase Ur Microscopic Review Urine Culture Comments Nasal Adenovirus (PCR) Nasal B. parapertussis DNA (PCR) Nasal Coronavir 229E PCR Nasal Coronavir HKU1 PCR Nasal Coronavir NL63 PCR Nasal Coronavir OC43 PCR Nasal Enterovir/Rhinovir PCR Nasal Influenza B PCR Nasal Influenza A PCR Nasal Parainfluen 1 PCR Nasal Parainfluen 2 PCR Nasal Parainfluen 3 PCR Nasal Parainfluen 4 PCR Nasal RSV (PCR) Nasal B.pertussis DNA PCR Nasal C.pneumoniae (PCR) [place] Human Metapneumo PCR Nasal M.pneumoniae (PCR) Nasal SARS-CoV-2 (PCR) 07/09/20 07/09/20 07/09/20 08:25 08:43 08:43 WBC RBC Hgb Hct MCV MCH MCHC RDW Plt Count MPV Neut # (Auto) Lymph # (Auto) [place] # (Auto) Eos # (Auto) Baso # (Auto) Absolute Nucleated RBC Nucleated RBC % Sodium Potassium Chloride Carbon Dioxide Anion Gap BUN Creatinine Estimated GFR (MDRD) Glucose Calcium Total Bilirubin AST ALT Alkaline Phosphatase Troponin I High Sens B-Natriuretic Peptide 171 H Total Protein Albumin Globulin Albumin/Globulin Ratio Lipase TSH 1.74 Thyroxine (T4) 13.12 H Urine Color Urine Clarity Urine pH Ur Specific [place] Urine Protein Urine Glucose (UA) Urine Ketones Urine Occult Blood Urine Nitrite Urine Bilirubin Urine Urobilinogen Ur Leukocyte Esterase Ur Microscopic Review Urine Culture Comments Nasal Adenovirus (PCR) NOT DETECTED Nasal B. parapertussis DNA (PCR) NOT DETECTED Nasal Coronavir 229E PCR NOT DETECTED Nasal Coronavir HKU1 PCR NOT DETECTED Nasal Coronavir NL63 PCR NOT DETECTED Nasal Coronavir OC43 PCR NOT DETECTED Nasal Enterovir/Rhinovir PCR NOT DETECTED Nasal Influenza B PCR NOT DETECTED Nasal Influenza A PCR NOT DETECTED Nasal Parainfluen 1 PCR NOT DETECTED Nasal Parainfluen 2 PCR NOT DETECTED Nasal Parainfluen 3 PCR NOT DETECTED Nasal Parainfluen 4 PCR NOT DETECTED Nasal RSV (PCR) NOT DETECTED Nasal B.pertussis DNA PCR NOT DETECTED Nasal C.pneumoniae (PCR) NOT DETECTED Misael Human Metapneumo PCR NOT DETECTED Nasal M.pneumoniae (PCR) NOT DETECTED Nasal SARS-CoV-2 (PCR) NOT DETECTED 07/09/20 07/09/20 09:45 10:56 WBC RBC Hgb Hct MCV MCH MCHC RDW Plt Count MPV Neut # (Auto) Lymph # (Auto) [place] # (Auto) Eos # (Auto) Baso # (Auto) Absolute Nucleated RBC Nucleated RBC % Sodium Potassium Chloride Carbon Dioxide Anion Gap BUN Creatinine Estimated GFR (MDRD) Glucose Calcium Total Bilirubin AST ALT Alkaline Phosphatase Troponin I High Sens 101.1 H* B-Natriuretic Peptide Total Protein Albumin Globulin Albumin/Globulin Ratio Lipase TSH Thyroxine (T4) Urine Color YELLOW Urine Clarity CLEAR Urine pH 7.0 Ur Specific [place] 1.015 Urine Protein NEGATIVE Urine Glucose (UA) NEGATIVE Urine Ketones NEGATIVE Urine Occult Blood NEGATIVE Urine Nitrite NEGATIVE Urine Bilirubin NEGATIVE Urine Urobilinogen 0.2 (NORMAL) Ur Leukocyte Esterase NEGATIVE Ur Microscopic Review NOT INDICATED Urine Culture Comments NOT INDICATED Nasal Adenovirus (PCR) Nasal B. parapertussis DNA (PCR) Nasal Coronavir 229E PCR Nasal Coronavir HKU1 PCR Nasal Coronavir NL63 PCR Nasal Coronavir OC43 PCR Nasal Enterovir/Rhinovir PCR Nasal Influenza B PCR Nasal Influenza A PCR Nasal Parainfluen 1 PCR Nasal Parainfluen 2 PCR Nasal Parainfluen 3 PCR Nasal Parainfluen 4 PCR Nasal RSV (PCR) Nasal B.pertussis DNA PCR Nasal C.pneumoniae (PCR) [place] Human Metapneumo PCR Nasal M.pneumoniae (PCR) Nasal SARS-CoV-2 (PCR) - Rads (name of study) chest Radiology: Prelim report reviewed (Impression: Questionable mild pulmonary vascular congestion. No focal infiltrate, pleural effusion or pneumothorax.), EMP read indepedently, See rad report Procedures - Bedside sono Bedside sono by EMP: With use of adult ultrasound I was unable to image the heart due to bowel gas and adipose tissue PD MEDICAL DECISION MAKING - ED course Complexity details: reviewed old records, reviewed results, re-evaluated patient, considered differential, d/w patient ED course: 55-year-old female with history of atrial fibrillation a rapid ventricular response has atrial fibrillation with rapid ventricular response again 4 days after having an ablation done. This is her second episode since the ablation. She has been administered 25 mg of diltiazem in the field with marked improvement in her heart rate we will provide further diltiazem and contact patient's nanny babysitter. In anticipation of potential admission to a health care facility a rapid coronavirus PCR was obtained. The patient converted in the ED and remained in sinus. A second trop was obtained and is lower. Her environmental change analyst Dr. Keen electophysiologist at [facility] is consulted and recommends conservative treatment with no medication changes as this early recovery phase post ablation frequently results in bursts of afib. Departure - Departure Disposition: 01 Home, Self Care Clinical Impression: Atrial fibrillation with RVR Condition: Stable Instructions: ED Afib Follow-Up: Bre Sagastume ARNP [Primary Care Provider] - Discharge Date/Time: 07/09/20 11:46
[2020-07-09 08:26] LABS: BASOPHILS % (AUTO) 0.5 %; EOSINOPHILS # (AUTO) 0.2 10^3/uL (0.0-0.7); EOSINOPHILS % (AUTO) 5.2 %; HGB - HEMOGLOBIN 13.2 g/dL (12.0-16.0); LYMPHOCYTES # (AUTO) 1.3 10^3/uL (1.5-3.5); LYMPHOCYTES % (AUTO) 30.2 %; MEAN CORPUSCULAR HEMOGLOBIN 33.3 pg (27.0-31.0); MEAN CORPUSCULAR HGB CONC 34.3 g/dL (32.0-36.0); MEAN CORPUSCULAR VOLUME 97.2 fL (81.0-99.0); MEAN PLATELET VOLUME 10.2 fL (7.9-10.8); MONOCYTES # (AUTO) 0.4 10^3/uL (0.0-1.0); MONOCYTES % (AUTO) 10.1 %; NEUTROPHILS # (AUTO) 2.3 10^3/uL (1.5-6.6); NEUTROPHILS % (AUTO) 53.5 %; PLT - PLATELET COUNT 152 10^3/uL (130-450); RED BLOOD COUNT 3.96 10^6/uL (4.20-5.40); RED CELL DISTRIBUTION WIDTH 12.7 % (12.0-15.0); WHITE BLOOD COUNT 4.2 x10^3/uL (4.8-10.8)
[2020-07-09] MEDS ORDERED: diltiaZEM INJ 5 MG/ML VIAL IVP STA (08:28)
[2020-07-09] MEDS ORDERED: SODIUM CHLORIDE 0.9% 1,000 ML IV STA (08:30)
[2020-07-09 08:41] LABS: ALBUMIN 3.8 g/dL (3.2-5.5); ALBUMIN/GLOBULIN RATIO 1.2 (1.0-2.2); BILIRUBIN,TOTAL 0.6 mg/dL (0.2-1.0); CALCIUM 9.6 mg/dL (8.5-10.3); CREATININE 0.8 mg/dL (0.4-1.0); TOTAL PROTEIN 6.9 g/dL (6.7-8.2)
[2020-07-09] MEDS ORDERED: PROMETHAZINE INJ 12.5 MG in SODIUM CHLORIDE 0.9% 50 ML IV STA (08:44)
--- NOTE | 2020-07-09 08:50 | XRAY Report ---
PROCEDURE: Chest 1 View X-Ray INDICATIONS: chest pain TECHNIQUE: One view of the chest was acquired. COMPARISON: 07/07/2020 FINDINGS: Surgical changes and devices: None. Lungs and pleura: No pleural effusions or pneumothorax. Mild pulmonary vascular congestion is seen. No definite focal infiltrate. Mediastinum: Mediastinal contours appear normal. Heart size is normal. Bones and chest wall: No suspicious bony lesions. Overlying soft tissues appear unremarkable. IMPRESSION: Questionable mild pulmonary vascular congestion. No focal infiltrate, pleural effusion or pneumothora x. Reviewed by: Rodriguez Mckenzie MD on 07/09/2020 8:49 AM [facility] Approved by: Rodriguez Mckenzie MD on 07/09/2020 8:49 AM [facility] Station ID: [id number]
[2020-07-09 09:54] LABS: BILIRUBIN,URINE NEGATIVE (NEGATIVE); GLUCOSE, URINE (UA) NEGATIVE (NEGATIVE); KETONES,URINE (UA) NEGATIVE (NEGATIVE); LEUKOCYTE ESTERASE, URINE NEGATIVE (NEGATIVE); NITRITE,URINE NEGATIVE (NEGATIVE); OCCULT BLOOD,URINE NEGATIVE (NEGATIVE); PROTEIN,URINE NEGATIVE (NEGATIVE); UROBILINOGEN,URINE 0.2 (NORMAL) E.U./dL (NORMAL)
[2020-07-09 09:56] LABS: CLARITY,URINE CLEAR (CLEAR)
[2020-07-09 10:14] LABS: C. PNEUMONIAE- RESP PCR PANEL NOT DETECTED
[2020-07-09 10:16] LABS: T4 (THYROXINE) 13.12 ug/dL (6.09-12.23)
[2020-07-09 10:19] LABS: THYROID STIMULATING HORMONE 1.74 uIU/mL (0.34-5.60)
[2020-07-09 11:32] VITALS: BP 104/64
== END 2020-07-09 11:46 | disposition home or self-care (01) ==
LOC: EDUNIT# → ED 08:04
DX: I48.20 Chronic atrial fibrillation, unspecified (principal); Z79.01 Long term (current) use of anticoagulants; Z20.828 Contact with and (suspected) exposure to other viral communicable diseases; R06.00 Dyspnea, unspecified
CPT/HCPCS: 0202U; 36415; 71045; 81003; 83690; 83880; 84436; 84484; 93005; 96361; 96374; 99284; A9270; J7040; 80053; 81001; 84443; 85025; 87086

== ENCOUNTER 2021-04-30 08:00 | Outpatient (CLI) | payer BC, OTHER ==
--- NOTE | 2021-04-30 17:02 | XRAY Report ---
PROCEDURE: Hand 3 View RT INDICATIONS: SPRAIN OF RIGHT HAND AND WRIST. Pain focal to the MCP joint of 1st digit of right hand TECHNIQUE: 3 views of the hand(s) acquired. COMPARISON: None FINDINGS: Bones: There is slight irregularity at the base of the first proximal metacarpal, not well seen on al l views.. No suspicious bony lesions. Soft tissues: No suspicious soft tissue calcifications. IMPRESSION: Slight irregularity, nondisplaced at the base of the first metacarpal, not well seen on all views. Fr acture cannot be excluded. Recommend short interval imaging follow-up in 7-10 days as clinically roz cated for additional evaluation. Reviewed by: Divya De La Torre MD on 04/30/2021 5:01 PM PDT Approved by: Divya De La Torre MD on 04/30/2021 5:01 PM PDT Station ID: [id number]
--- NOTE | 2021-04-30 17:07 | XRAY Report ---
PROCEDURE: Hip w/Pelvis 2-3V LT INDICATIONS: CONTUSION OF LEFT HIP TECHNIQUE: AP pelvis with lateral view(s) of the left hip(s). COMPARISON: December 04, 2017. FINDINGS: BONES/JOINT: No acute, displaced fracture or dislocation. The femoral head is seated within the aceta bulum. At least moderate joint space narrowing of the right hip with sclerosis of the opposing articular carlota faces. The left hip joint space is maintained. The sacroiliac joint is patent. SOFT TISSUES: No focal abnormality. IMPRESSION: 1.No acute osseous abnormality of the left hip. Reviewed by: Morales Fowler MD on 04/30/2021 5:06 PM PDT Approved by: Morales Fowler MD on 04/30/2021 5:06 PM PDT Station ID: [id number]
== END 2021-04-30 23:59 | disposition home or self-care (01) ==
LOC: DI.S 08:00
PROVIDERS: ATTEND Physician Assistant Medical
DX: S63.8X1A Sprain of other part of right wrist and hand, initial encounter (principal); S70.02XA Contusion of left hip, initial encounter

== ENCOUNTER 2021-05-10 08:00 | Outpatient (CLI) | payer BC, OTHER ==
--- NOTE | 2021-05-10 16:00 | XRAY Report ---
PROCEDURE: Wrist 4 View RT INDICATIONS: SPRAIN OF OTHER PART OF RIGHT WRIST AND HAND TECHNIQUE: 4 views of the wrist were acquired. COMPARISON: Right hand radiographs 04/30/2021. FINDINGS: Bones: No definite fracture. No dislocation. No periosteal reaction. No suspicious bony lesions. Scaphoid view: Intact. Soft tissues: No suspicious soft tissue calcifications. IMPRESSION: No definite fracture. No periosteal reaction. If clinically indicated CT or MRI could be considered for further evaluation. Reviewed by: Favian Nathan MD on 05/10/2021 3:59 PM PST Approved by: Favian Nathan MD on 05/10/2021 3:59 PM PST Station ID: [id number]
== END 2021-05-10 23:59 | disposition home or self-care (01) ==
LOC: DI.S 08:00
PROVIDERS: ATTEND Physician Assistant
DX: S63.8X1A Sprain of other part of right wrist and hand, initial encounter (principal)

== ENCOUNTER 2021-05-21 10:15 | Outpatient (CLI) | payer BC, OTHER ==
--- NOTE | 2021-05-21 15:15 | XRAY Report ---
PROCEDURE: Wrist 4 View RT INDICATIONS: SPRAIN OF R WRIST TECHNIQUE: 4 views of the wrist were acquired. COMPARISON: Wrist radiographs dated 05/10/2021 FINDINGS: No acute fracture. Scattered subchondral sclerosis and spurring. Ulnar minus variance noted. There i s distal radioulnar joint degeneration Soft tissues: No suspicious soft tissue calcifications. IMPRESSION: No fracture or evidence of occult healing fracture since 05/10/2021. If the patient's pain or other s ymptoms persist, consider further evaluation with MRI. Reviewed by: Fito Peña MD on 05/21/2021 3:14 PM PST Approved by: Fito Peña MD on 05/21/2021 3:14 PM PST Station ID: [id number]
== END 2021-05-21 23:59 | disposition home or self-care (01) ==
LOC: DI.N 10:15
PROVIDERS: ATTEND Physician Assistant
DX: S63.591D Other specified sprain of right wrist, subsequent encounter (principal)

== ENCOUNTER 2021-05-30 08:21 | Outpatient (CLI) | payer OTHER, BC ==
--- NOTE | 2021-05-30 11:43 | MRI Report ---
PROCEDURE: Wrist RT W/O INDICATIONS: OTHER SPECIFIED SPRAIN OF RT WRIST, SUBSEQUENT ENC TECHNIQUE: Noncontrast coronal proton density fast spin echo and T2 fast spin echo with fat saturation; coronal 3-D gradient echo, axial T1 spin echo and T2 fast spin echo with fat saturation, sagittal T1 spin ech o through the wrist. COMPARISON: Right wrist radiographs 05/21/2021. FINDINGS: Image quality: Excellent. Bones and cartilage: The carpal bones are normally aligned. No bone marrow contusions or fractures. No evidence for avascular necrosis. Scattered mild degenerative cystic changes are seen in the wris t. There is cartilage loss and marginal osteophyte formation at the first carpometacarpal joint. Mild degenerative changes are also seen at the triscaphe joint. Carpal ligaments: The scapholunate and lunotriquetral ligaments appear intact. On sagittal images, the pisohamate ligament appears intact. Triangular fibrocartilage complex: The triangular fibrocartilage appears intact. A trace amount of fluid is seen in the distal radioulnar joint. Tendons and soft tissues: The carpal tunnel structures appear normal, including the median nerve. T he ulnar nerve appears normal within Guyon's canal. Mild extensor carpi ulnaris tendinosis. The remai corina extensor tendons are intact. No soft tissue ganglion cysts. IMPRESSION: 1.No acute trabecular bone injury or fracture. No significant ligament injury is seen. 2.Mild extensor carpi ulnaris tendinosis. 3.Mild first carpometacarpal and triscaphe joint osteoarthrosis. Reviewed by: Ge Uribe MD on 05/30/2021 11:42 AM [facility] Approved by: Ge Uribe MD on 05/30/2021 11:42 AM PST Station ID: [id number]
== END 2021-05-30 08:22 | disposition home or self-care (01) ==
LOC: DI 08:21
PROVIDERS: ATTEND Physician Assistant
DX: S63.591D Other specified sprain of right wrist, subsequent encounter (principal); M67.833 Other specified disorders of tendon, right wrist; M19.031 Primary osteoarthritis, right wrist

== ENCOUNTER 2022-01-25 11:34 | Outpatient (CLI) | payer SELFPAY | END 2022-01-25 11:35 | disposition left against medical advice (07) | LOC: EMS 11:34 | DX: R00.0 Tachycardia, unspecified (principal); R00.2 Palpitations ==

== ENCOUNTER 2022-12-26 13:29 | Outpatient (CLI) | payer OTHER ==
--- NOTE | 2022-12-26 14:09 | Sleep Patient Instructions ---
Sleep Center Visit Summary - Patient Visit Information Reason for Visit: Annual visit for PAP therapy - Patient Instructions Additional Instructions: You will continue with CPAP therapy with pressure set at 6-9 cmH2O. A supply prescription will be updated with your DME. A transfer of care to for supplies has been included. We are also trying to update your CPAP device. We will need to see you back for a compliance visit a month after you obtain your new device. We encourage you to continue to try to lose weight. Please follow up with the sleep care office one month after obtaining new CPAP. - Clinic Information Contact: [facility] [address] [place] [address] [email or web address] T: [phone]
--- NOTE | 2022-12-26 14:17 | SLEEP CARE CONSULTATION ---
Information from patient questionnaire entered by Radha Wheeler. I have reviewed and concur with the information entered by Radha Wheeler. This document represents the service I personally performed and the decisions made by me, Rosa Elena Lindsey ARNP. History of Present Illness Service Date and Time: 12/26/2022 1329 Previous diagnosis: Moderate, Obstructive Sleep Apnea-Hypopnea Syndrome AHI: 18.5 (in 2018) Reason for follow up: annual (LAST SEEN 05/2020) Equipment type: CPAP (TEE Dreamstation 2; s/u 03/2018) Equipment obtained from: Other ([facility]) Mask style: Nasal pillows Backup mask available: No (needs supplies) Last cushion change: 6 months ago Prior sleep studies: Yes Year and Where: 2017 - [facility] Type of Sleep Study: Polysomnography HPI additional information: BANDAR GOINS was diagnosed to have moderate, AHI 18.5, obstructive sleep apnea- hypopnea syndrome and returned today for CPAP therapy annual follow-up. Sleep Study - Results Type of Sleep Study: Polysomnography Prior sleep studies: Yes Year and Where: 2017 - [facility] CPAP Compliance Data - Data Reviewed with Patient Average duration of nightly device use: 7 hours 55 minutes Compliance rate %: 66.7 (120/180 days used) Current pressure setting (cmH2O): 6-9 Average residual AHI: 1.8 Average large leak: 0 secs Compliance data discussion: Were using old Dreamstation on days missing with Dreamstation 2. Subjective Missed days of use due to: reports: travel, other (used other machine when traveling) Patient concerns: reports: condensation in mask/hose. denies: aerophagia, mask discomfort, air blowing in eyes, mask leak noise, nasal congestion, dry mouth, nose, throat, epistaxis Observed to snore while using device: Yes (not often) Current pressure setting perceived as: comfortable On therapy, patient: reports: sleeping better, awakening more refreshed, being more awake and alert during the day, more rested overall. denies: drowsiness while driving Initial Huxley Sleepiness Scale score: 9 (in 2018) Current Huxley Sleepiness Scale score: 2 (12/26/22) Allergies and Home Medications Known drug allergies: Yes (as listed) Drug allergies reviewed: Yes Home medication list reviewed: Yes (Atomoxetine; Wellbutrin) Allergy and home medication list: Allergies Penicillins Allergy (Severe, Verified 12/25/22 14:48) Hives doxycycline Adverse Reaction (Severe, Verified 12/25/22 14:48) Emesis trazodone Adverse Reaction (Severe, Verified 12/25/22 14:48) Emesis codeine Adverse Reaction (Intermediate, Verified 12/25/22 14:48) Emesis Review of Systems Review of systems same as previous: No (ADHD) Physical Exam Vital signs obtained and entered by: RADHA Mustafa MA Blood Pressure: 136/88 (LEFT ARM) Cuff size: long Heart Rate: 94 O2 Saturation: 96 Height: 5 ft 7 in Weight: 300 lb (PER PT) Weight change since last visit: 5 lb down Body Mass Index: 47.0 BMI Classification: Morbidly Obese Impression and Plan 1. Obstructive Sleep Apnea-Hypopnea Syndrome, moderate, with good treatment compliance and good apnea control. On CPAP therapy, the patient has better sleep quality and is more rested overall. Patient has been changing insurance quite often in the last 3 years and has not had a DME supplier for it while. She would like to get some supplies covered by her insurance currently. Patient received a DreamStation 2 through the recall but she does not like the machine. She may be eligible through insurance for a new device and would like to update to a another device. I will write to update her device to see if her insurance will cover one at this time otherwise she may have to wait until March this year. I will have my property management coordinator inform of DME options. A DWO prescription will then be made. Patient advised to contact this office if further supply problems. I informed patient of compliance requirements with updating her machine and she voiced understanding. She will call to make her follow-up appointment once she has her new device. Patient's apnea severity and rationale for treatment to reduce apnea, improve sleep quality and reduce cardiovascular and cerebrovascular events was reviewed. I also reviewed the benefit of consistent device use of CPAP for arrhythmia and attention deficit. 2. Obesity, unspecified. Currently patients BMI is 47. Obesity increases the risk of apnea, CPAP pressure requirements and overall health risks especially cardiovascular and diabetes. Thus patient is advised to lose weight. Continue auto CPAP pressure at 6-9 cmH2O Transfer DME Update machine Update supplies Notify me if snoring with mask or feeling that the pressure is too much or too little Attempt to lose weight Call this office if any problems using CPAP Return for follow up one month after obtaining new CPAP, or sooner if concerns arise Counseling Topics: Spare mask, Weight loss health impact Visit Type: In Office Time Spent with Patient (minutes): 29 Provider Statement: I spent 100% of the Face to Face Visit with the patient with greater than 50% spent counseling the patient and coordination of care.
[2022-12-26 14:18] VITALS: BP 136/88
== END 2022-12-26 13:30 | disposition home or self-care (01) ==
LOC: SC 13:29
PROVIDERS: ATTEND Nurse Practitioner Family
DX: G47.33 Obstructive sleep apnea (adult) (pediatric) (principal); E66.01 Morbid (severe) obesity due to excess calories; Z68.42 Body mass index [BMI] 45.0-49.9, adult
CPT/HCPCS: 99212; 99213

== ENCOUNTER 2023-02-09 18:11 | Outpatient (CLI) | payer OTHER ==
--- NOTE | 2023-02-10 09:14 | XRAY Report ---
PROCEDURE: Hip w/Pelvis 2-3V RT INDICATIONS: OSTEOARTHRITIS OF RIGHT HIP TECHNIQUE: AP pelvis with lateral view(s) of the right hip(s). COMPARISON: None. FINDINGS: Bones: No fractures or dislocations. No suspicious bony lesions. Joint space narrowing, subchondr al bone cysts, osteophytosis and slight bony deformity of the right hip. Soft tissues: No suspicious soft tissue calcifications or masses. IMPRESSION: Marked right hip osteoarthritis. Kellgren-Navneet scale of osteoarthritis: 4 Reviewed by: Misha Serna on 02/10/2023 9:12 AM PDT Approved by: Misha Serna on 02/10/2023 9:12 AM PDT Station ID: [id number]
== END 2023-02-09 23:59 | disposition home or self-care (01) ==
LOC: DI.S 18:11
PROVIDERS: ATTEND Emergency Medicine
DX: M16.11 Unilateral primary osteoarthritis, right hip (principal)